=== PATIENT | male | born 1935 | race Caucasian/White ===

== ENCOUNTER 2018-09-02 05:40 | Outpatient (CLI) | payer MEDICARE ==
[~2018-09-02] VITALS: Ht 177.8 cm; Wt 86.6 kg
[~2018-09-02 05:40] MED LIST: ASPI81TA57 PO; LISI10TA2 PO; MULT-974 PO; ROSU10TA12 PO; ZOLP10TA5 PO
[2018-09-02] MEDS ORDERED: PANT40TA3 PO (10:21)
[2018-09-02] MEDS ORDERED: OMG1KC PO (10:21)
[2018-09-02] MEDS ORDERED: AMLO10TA7 PO (10:21)
[2018-09-02] MEDS ORDERED: ASPI-999 PO (10:21)
[2018-09-02] MEDS ORDERED: VITA400C60 PO (10:21)
[2018-09-02] MEDS ORDERED: SIMV40TA4 PO (10:21)
== END 2018-09-02 10:22 | disposition home or self-care (01) ==
LOC: PREOP 05:40
PROVIDERS: ATTEND Specialist
DX: Z01.818 Encounter for other preprocedural examination (principal)

== ENCOUNTER 2018-09-03 08:34 | Day surgery (SDC) | payer MEDICARE ==
[~2018-09-03] VITALS: Ht 177.8 cm; Wt 86.6 kg
[~2018-09-03 08:34] MED LIST changes: +AMLO10TA7 PO; +ASPI-999 PO; +OMG1KC PO; +PANT40TA3 PO; +SIMV40TA4 PO; +VITA400C60 PO
[2018-09-03 09:00] VITALS: BP 125/82
[2018-09-03] MEDS: TETRACAINE 0.5% OPHTH SOLN 4 ML BTL (SINGLE DOSE ONLY) OU PRN ×4 (09:06→09:24)
[2018-09-03] MEDS: PHENYLEPHRINE 10% OPHTH (NEO-SYN) 5 ML BTL OU PRN ×3 (09:06→09:19)
[2018-09-03] MEDS: TROPICAMIDE 1% OPH SOLN (MYDRIACYL) 15 ML BTL OU PRN ×3 (09:06→09:19)
--- OUTSIDE RECORDS SUMMARY | 2018-09-03 09:54 | XMS REPORT ---
Author Author ERIKA PALACIO [facility] Address [address] [place] [address] Care Team Providers Care Band Lining Bander Name Role Phone ERIKA PALACIO Unavailable PROBLEMS Unknown Problems ALLERGIES No Information ENCOUNTERS Encounter Location Date Diagnosis [facility] [id number] [address] October, [facility] [address] [place] [address] October, [place] [id number] [place] [address] Aug, IMMUNIZATIONS No Known Immunizations SOCIAL HISTORY Never Assessed REASON FOR VISIT Eye Exam PLAN OF CARE VITAL SIGNS MEDICATIONS Unknown Medications RESULTS No Results PROCEDURES No Known procedures INSTRUCTIONS MEDICATIONS ADMINISTERED No Known Medications
--- OUTSIDE RECORDS SUMMARY | 2018-09-03 09:54 | XMS REPORT ---
Author Author ERIKA PALACIO [facility] Address [address] [place] [address] Care Team Providers Care Beer Coil Cleaner Name Role Phone ERIKA PALACIO Unavailable PROBLEMS Unknown Problems ALLERGIES No Information ENCOUNTERS Encounter Location Date Diagnosis [facility] [address] [address] October, [facility] [address] [address] October, [place] [id number] [address] Aug, IMMUNIZATIONS No Known Immunizations SOCIAL HISTORY Never Assessed REASON FOR VISIT Requests return call PLAN OF CARE VITAL SIGNS MEDICATIONS Unknown Medications RESULTS No Results PROCEDURES No Known procedures INSTRUCTIONS MEDICATIONS ADMINISTERED No Known Medications
--- OUTSIDE RECORDS SUMMARY | 2018-09-03 09:54 | XMS REPORT | CCD ---
Author Author SHILPI RODRIGUEZ Organization Unknown Address [address] [facility] [address] [place] [address] Care Team Providers Care Autos Disassembler Name Role Phone KOBE FITZPATRICK MD Attphys Allergies Unknown or Not Available. Active Medications Unknown or Not Available. Problems Unknown or Not Available. Procedures Procedure Code Procedure Type Date Cataract removal insertion of lens; (-RT Right side of body) 37936 CPT 03/21/2016 Results Unknown or Not Available. Function Status Unknown or Not Available. History of Immunizations Unknown or Not Available. Plan of Treatment Unknown or Not Available. Social History Smoking Status Code Start Date End Date Former smoker [id number] Vital Signs Unknown or Not Available. Function Status Unknown or Not Available. Goals Unknown or Not Available. ASSESSMENTS Unknown or Not Available. Health Concerns Section Unknown or Not Available.
--- OUTSIDE RECORDS SUMMARY | 2018-09-03 09:55 | XMS REPORT ---
Author Author ERIKA PALACIO [facility] Address [address] [place] [address] Care Team Providers Care Home Health Clinical Liaison Name Role Phone ERIKA PALACIO Unavailable PROBLEMS Unknown Problems ALLERGIES No Information ENCOUNTERS Encounter Location Date Diagnosis [facility] [address] [address] October, [facility] [address] [address] October, [place] [id number] [address] Aug, IMMUNIZATIONS No Known Immunizations SOCIAL HISTORY Never Assessed REASON FOR VISIT Eye Exam PLAN OF CARE VITAL SIGNS MEDICATIONS Unknown Medications RESULTS No Results PROCEDURES No Known procedures INSTRUCTIONS MEDICATIONS ADMINISTERED No Known Medications
--- OUTSIDE RECORDS SUMMARY | 2018-09-03 09:55 | XMS REPORT | Continuity of Care Document ---
Author Author [facility] Organization [facility] Address Unknown Phone Unavailable Allergies Active Description Code Type Severity Reaction Onset Reported/Identified Relationship to Patient Clinical Status Yes MARK INHIBITORS MARK INHIBITORS MODERATE Yes MARK INHIBITORS MODERATE OTHER Yes LISINOPRIL UNKNOWN OTHER Yes No Known Drug Allergies [id number] Drug Allergy Unknown N/A 07/03/2013 Medications Medication Packaging Start Date Stop Date Route Dosage Sig PROMETHAZINE W/ CODEINE LIQ 0 (PHENERGAN) ml 06/05/2016 06/05/2016 PRN ONCE NORMAL SALINE 1000CC IV BAG INJ 0.9 % (NS 1000CC IV BAG) ml 06/05/2016 06/05/2016 ONCE&1302 ACETAMINOPHEN ORAL TABLET 325mg(Tylenol) MG 06/05/2016 06/12/2016 PRN EVERY 6 Hour CEFTRIAXONE PREMIX IV BAG IV 1 GM/50CC (ROCEPHIN PREMIX IV BAG) GM 06/05/2016 06/05/2016 ONCE&1443 IPRATROPIUM/ALBUTEROL INH SOLN INH 0 (DUO-NEB INH SOLN) MLS 06/05/2016 06/12/2016 QID&0600,1100,1600,2100 GUAIFENESIN TAB 600 MG (MUCINEX) MG 06/05/2016 06/12/2016 Q12H&0600,1800 LEVOFLOXACIN PREMIX IV BAG INJ 500 MG/100CC (LEVAQUIN IV PREMIX 100CC BAG) MG 06/05/2016 06/12/2016 Daily&0900 PROMETHAZINE W/ CODEINE LIQ 0 (PHENERGAN) ml 06/05/2016 06/12/2016 PRN Q4H D5 1/2 NS 1000CC IV BAG INJ 0 ml 06/12/2016 CONTINUOUSEVERY 0 Hour SIMVASTATIN TAB 40 MG (ZOCOR) Dose(s) 06/05/2016 06/11/2016 QPM&2000 CARVEDILOL TAB 6.25 MG (COREG) Dose(s) 06/05/2016 06/12/2016 BID&0800,2000 ASA 81MG CHEWABLE TAB 81 MG (BABY ASPIRIN) Dose(s) 06/06/2016 06/12/2016 Daily&0900 PANTOPRAZOLE TAB 40 MG (PROTONIX) Dose(s) 06/06/2016 06/12/2016 Daily&0900 AMLODIPINE TAB 10 MG (NORVASC) Dose(s) 06/06/2016 06/12/2016 Daily&0900 CEFTRIAXONE PREMIX IV BAG IV 1 GM/50CC (ROCEPHIN PREMIX IV BAG) GM 06/06/2016 06/12/2016 Daily&0900 PANTOPAZOLE VIAL INJ 40 MG (PROTONIX IV) MG 06/06/2016 06/15/2016 Daily&0900 Problems Date Dx Coded Attending Type Code Diagnosis Diagnosed By 07/04/2013 ANDREI PENA MD Ot 272.4 HYPERLIPIDEMIA NEC/NOS 07/04/2013 ANDREI PENA MD Ot 288.60 LEUKOCYTOSIS, UNSPECIFIED 07/04/2013 ANDREI PENA MD Ot 401.9 HYPERTENSION NOS 07/04/2013 ANDREI PENA MD Ot 414.00 CORON ATHEROSCLER NOS TYPE VESSEL, NATIV 07/04/2013 ANDREI PENA MD Ot 780.2 SYNCOPE AND COLLAPSE 07/04/2013 ANDREI PENA MD Ot 780.8 GENERALIZED HYPERHIDROSIS 07/04/2013 ANDREI PENA MD Ot V45.81 AORTOCORONARY BYPASS 07/04/2013 ANDREI PENA MD Ot V58.66 LONG-TERM (CURRENT) USE OF ASPIRIN 07/04/2013 ANDREI PENA MD Ot V58.69 OT MED,LT,CURRENT USE 06/05/2016 DEBBIE CRUZ 401 ESSENTIAL HYPERTENSION 06/05/2016 DEBBIE CRUZ 481 PNEUMOCOCCAL PNEUMONIA [STREPTOCOCCUS PNEUMONIAE PNEUMONIA] 06/05/2016 DEBBIE CRUZ I10 ESSENTIAL (PRIMARY) HYPERTENSION 06/05/2016 DEBBIE CRUZ J18.1 LOBAR PNEUMONIA, UNSPECIFIED ORGANISM 06/07/2016 DEBBIE CRUZ 255.41 06/07/2016 DEBBIE CRUZ 401.0 06/07/2016 DEBBIE CRUZ 414.01 06/07/2016 DEBBIE CRUZ A 486 PNEUMONIA, ORGANISM UNSPECIFIED 06/07/2016 DEBBIE CRUZ W 530.81 ESOPHAGEAL REFLUX 06/07/2016 DEBBIE CRUZ W 780.79 06/07/2016 DEBBIE CRUZ 786.05 06/07/2016 DEBBIE CRUZ 786.50 06/07/2016 DEBBIE CRUZ 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 06/07/2016 DEBBIE CRUZ I10 ESSENTIAL (PRIMARY) HYPERTENSION 06/07/2016 DEBBIE CRUZ I25.10 ATHSCL HEART DISEASE OF [place] CORONARY ARTERY W/O ANG PCTRS 06/07/2016 DEBBIE CRUZ J18.9 PNEUMONIA, UNSPECIFIED ORGANISM 06/07/2016 DEBBIE CRUZ K21.9 GASTRO-ESOPHAGEAL REFLUX DISEASE WITHOUT ESOPHAGITIS 06/07/2016 DEBBIE CRUZ R06.02 06/07/2016 DEBBIE CRUZ R07.9 CHEST PAIN, UNSPECIFIED 06/07/2016 DEBBIE CRUZ R53.83 OTHER FATIGUE 06/08/2016 DEBBIE CRUZ 486 06/08/2016 DEBBIE CRUZ J18.9 PNEUMONIA, UNSPECIFIED ORGANISM 08/19/2017 DEBBIE CRUZ 272.4 OTHER AND UNSPECIFIED HYPERLIPIDEMIA 08/19/2017 DEBBIE CRUZ 401.0 MALIGNANT ESSENTIAL HYPERTENSION 08/19/2017 DEBBIE CRUZ E78.5 HYPERLIPIDEMIA, UNSPECIFIED 08/19/2017 DEBBIE CRUZ I10 ESSENTIAL (PRIMARY) HYPERTENSION 08/19/2017 DEBBIE CRUZ V70.0 ROUTINE GENERAL MEDICAL EXAMINATION AT A HEALTH CARE FACILITY 08/19/2017 DEBBIE CRUZ Z00.00 ENCOUNTER FOR GENERAL ADULT MEDICAL EXAMINATION WITHOUT ABNORMAL FINDINGS 08/19/2017 DEBBIE CRUZ 272.4 OTHER AND UNSPECIFIED HYPERLIPIDEMIA 08/19/2017 DEBBIE CRUZ 401.0 MALIGNANT ESSENTIAL HYPERTENSION 08/19/2017 DEBBIE CRUZ E78.5 HYPERLIPIDEMIA, UNSPECIFIED 08/19/2017 DEBBIE CRUZ I10 ESSENTIAL (PRIMARY) HYPERTENSION 08/19/2017 DEBBIE CRUZ V70.0 ROUTINE GENERAL MEDICAL EXAMINATION AT A HEALTH CARE FACILITY 08/19/2017 CRUZ, DEBBIE W Z00.00 ENCOUNTER FOR GENERAL ADULT MEDICAL EXAMINATION WITHOUT ABNORMAL FINDINGS 08/19/2017 TAMMIE CRUZHEL W 272.4 OTHER AND UNSPECIFIED HYPERLIPIDEMIA 08/19/2017 TAMMIE CRUZHEL W 401.0 MALIGNANT ESSENTIAL HYPERTENSION 08/19/2017 TAMMIE CRUZHEL W E78.5 HYPERLIPIDEMIA, UNSPECIFIED 08/19/2017 DEBBIE CRUZ W I10 ESSENTIAL (PRIMARY) HYPERTENSION 08/19/2017 TAMMIE CRUZALLA Payne V70.0 ROUTINE GENERAL MEDICAL EXAMINATION AT A HEALTH CARE FACILITY 08/19/2017 DEBBIE CRUZ W Z00.00 ENCOUNTER FOR GENERAL ADULT MEDICAL EXAMINATION WITHOUT ABNORMAL FINDINGS 10/09/2017 Talisha Charles W 786.2 COUGH 10/09/2017 Talisha Charles W R05 COUGH 10/09/2017 Talisha Charles W 786.2 COUGH 10/09/2017 Talisha Charles W R05 COUGH 10/23/2017 DEBBIE CRUZ A 723.1 CERVICALGIA 10/23/2017 DEBBIE CRUZ A M54.2 CERVICALGIA 10/30/2017 DEBBIE CRUZ W 723.1 CERVICALGIA 10/30/2017 CRUZDEBBIE DE ANDA W M54.2 CERVICALGIA 11/14/2017 CRUZ, DEBBIE W 788.64 URINARY HESITANCY 11/14/2017 ANTHONY, DEBBIE W R39.11 HESITANCY OF MICTURITION 11/14/2017 CRUZ, DEBBIE W 788.64 URINARY HESITANCY 11/14/2017 CRUZ, DEBBIE W R39.11 HESITANCY OF MICTURITION 11/14/2017 DEBBIE CRUZ W 788.64 URINARY HESITANCY 11/14/2017 CRUZ, DEBBIE W R39.11 HESITANCY OF MICTURITION 11/22/2017 CRUZ, DEBBIE W 724.2 LUMBAGO 11/22/2017 CRUZDEBBIE DE ANDA W M54.5 LOW BACK PAIN 11/22/2017 CRUZ, DEBBIE W 723.1 CERVICALGIA 11/22/2017 CRUZ, DEBBIE W 724.2 LUMBAGO 11/22/2017 CRUZ, DEBBIE W M54.2 CERVICALGIA 11/22/2017 CRUZDEBBIE DE ANDA W M54.5 LOW BACK PAIN 12/12/2017 CRUZDEBBIE DE ANDA W 723.1 CERVICALGIA 12/12/2017 DEBBIE CRUZ W 724.2 LUMBAGO 12/12/2017 DEBBIE CRUZ W M54.2 CERVICALGIA 12/12/2017 DEBBIE CRUZ W M54.5 LOW BACK PAIN 02/20/2018 DEBBIE CRUZ A 401.0 MALIGNANT ESSENTIAL HYPERTENSION 02/20/2018 ANTHONY DEBBIE A I10 ESSENTIAL (PRIMARY) HYPERTENSION 02/20/2018 TAMMIE CRUZHEL A 401.0 MALIGNANT ESSENTIAL HYPERTENSION 02/20/2018 TAMMIE CRUZHEL W 414.01 CORONARY 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 ARTERY 02/20/2018 ANTHONY DEBBIE A I10 ESSENTIAL (PRIMARY) HYPERTENSION 02/20/2018 TAMMIE CRUZHEL W I25.10 ATHEROSCLEROTIC HEART DISEASE OF [place] CORONARY ARTERY WITHOUT ANGINA PECTORIS 02/20/2018 DEBBIE CRUZ A 401.0 MALIGNANT ESSENTIAL HYPERTENSION 02/20/2018 TAMMIE CRUZHEL W 414.01 CORONARY 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 ARTERY 02/20/2018 TAMMEI CRUZHEL A I10 ESSENTIAL (PRIMARY) HYPERTENSION 02/20/2018 DEBBIE CRUZ W I25.10 ATHEROSCLEROTIC HEART DISEASE OF [place] CORONARY ARTERY WITHOUT ANGINA PECTORIS 02/20/2018 DEBBIE CRUZ A 401.0 MALIGNANT ESSENTIAL HYPERTENSION 02/20/2018 TAMMIE CRUZHEL W 414.01 CORONARY 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 ARTERY 02/20/2018 DEBBIE CRUZ A I10 ESSENTIAL (PRIMARY) HYPERTENSION 02/20/2018 ANTHONY DEBBIE W I25.10 ATHEROSCLEROTIC HEART DISEASE OF [place] CORONARY ARTERY WITHOUT ANGINA PECTORIS 08/21/2018 DEBBIE CRUZ W 272.4 OTHER AND UNSPECIFIED HYPERLIPIDEMIA 08/21/2018 DEBBIE CRUZ W 401.0 MALIGNANT ESSENTIAL HYPERTENSION 08/21/2018 TAMMIE CRUZHEL W 414.01 CORONARY 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 ARTERY 08/21/2018 DEBBIE CRUZ W E78.5 HYPERLIPIDEMIA, UNSPECIFIED 08/21/2018 ANTHONY DEBBIE W I10 ESSENTIAL (PRIMARY) HYPERTENSION 08/21/2018 ANTHONY DEBBIE W I25.10 ATHEROSCLEROTIC HEART DISEASE OF [place] CORONARY ARTERY WITHOUT ANGINA PECTORIS 08/21/2018 DEBBIE CRUZ W 272.4 OTHER AND UNSPECIFIED HYPERLIPIDEMIA 08/21/2018 TAMMIE CRUZHEL W 401.0 MALIGNANT ESSENTIAL HYPERTENSION 08/21/2018 TAMMIE CRUZHEL W 414.01 CORONARY 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 ARTERY 08/21/2018 CRUZTAMMIEDEBBIE W E78.5 HYPERLIPIDEMIA, UNSPECIFIED 08/21/2018 CRUZTAMMIEDEBBIE W I10 ESSENTIAL (PRIMARY) HYPERTENSION 08/21/2018 TAMMIE CRUZALLA Payne I25.10 ATHEROSCLEROTIC HEART DISEASE OF [place] CORONARY ARTERY WITHOUT ANGINA PECTORIS 09/02/2018 DEBBIE CRUZ MD Ot 574.90 CALC GB/BILE DUCT W/O CHOLECYST W/O OBST 09/02/2018 DEBBIE CRUZ MD Ot 787.01 NAUSEA WITH VOMITING 09/02/2018 DEBBIE CRUZ MD Ot 787.23 DYSPHAGIA, PHARYNGEAL PHASE 09/03/2018 AMARI BUNCH, KOBE Ledesma Ot Z01.818 ENCOUNTER FOR OTHER PREPROCEDURAL EXAMIN Procedures There is no data. Results Test Result Range CBC with Auto Diff - 06/05/16 12:40 Baso% 0.20 % 0.00-2.50 Eos 0.2 K/uL 0.0-0.7 Eos% 1.7 % 0.0-7.0 Hct 42.0 % 42.0-52.0 Hgb 14.1 g/dL 14.0-17.0 Lym 5.24 K/uL 0.60-3.40 Lym% 50.7 % 10.0-50.0 MCH 29.8 pg 27.0-31.2 MCHC 33.6 g/dL 32.0-36.0 MCV 88.8 fL 80.0-97.0 [place]% 10.0 % 0.0-12.0 MPV 11.3 fL 7.4-10.0 Thony% 37.4 % 37.0-80.0 Plt 178 K/uL 150-400 RBC 4.73 M/uL 4.20-5.40 RDW 14.4 % 11.6-14.8 WBC 10.34 K/uL 5.00-10.00 Thony 3.87 K/uL 2.00-6.90 [place] 1.0 K/uL 0.0-0.9 Baso 0.0 K/uL 0.0-0.2 Urinalysis - 06/05/16 17:57 Icotest N/A Negative Urine Volume Urine Volume Sufficient (10mL) Urine Yeast No Yeast present Urine-Appearance Clear Clear Urine-Bacteria Trace Urine-Bilirubin Negative Negative Urine-Blood Negative Negative Urine-Color Yellow Colorless-Lt. Yellow Urine-Epithelial Cells 0-1/HPF Urine-Glucose Negative Negative Urine-Ketones Trace Negative Urine-Leukocytes Negative Negative Urine-Mucus 1+ Urine-Nitrite Negative Negative Urine-Other Urine Saved if Culture Needed (48hrs from time of collection) Urine-pH 6.5 5-8.5 Urine-Protein Trace Negative Urine-RBC Rare/HPF Urine-Specific [place] 1.020 1.000-1.030 Urine-WBC 0-2/HPF Urobilinogen 1.0 0.2-1.0 Lipid Panel - 08/14/16 10:40 C/HDL 5.3 3.7-6.7 Cholesterol 170 mg/dL 100-240 HDL 32 mg/dL 30-85 LDL-Calculated 77 mg/dL 0-100 Trig 306 mg/dL 35-160 VLDL 61 mg/dL 0-42 BMP - 02/18/17 10:36 Anion Gap 12 6-14 BUN 12 mg/dL 5-25 Calcium 9.0 mg/dL 8.3-10.4 Chloride 107 mmol/L 95-114 CO2 30 mEq/L 22-33 Creat 1.23 mg/dL 0.50-1.50 eGFR 56 mL/min/1.73m2 >59 Glucose 101 mg/dL 70-110 Osmo 299 280-295 Potassium 3.9 mmol/L 3.5-5.3 Sodium 145 mmol/L 134-148 Lipid Panel - 08/19/17 09:42 C/HDL 4.9 3.7-6.7 Cholesterol 183 mg/dL 100-240 HDL 37 mg/dL 30-85 LDL-Calculated 96 mg/dL 0-100 Trig 249 mg/dL 35-160 VLDL 50 mg/dL 0-42 Mycoplasma - 10/09/17 09:05 Mycoplasma Negative Negative PSA Yearly Screen - 11/14/17 09:25 PSA TOTAL 6.1 ng/mL 0.0-4.0 Comprehensive Metabolic Panel - 02/20/18 10:27 Albumin 4.1 g/dL 3.6-5.1 ALP 85 U/L 35-130 ALT 18 U/L 6-45 Anion Gap 13 6-14 AST 17 U/L 2-40 BUN 18 mg/dL 5-25 Calcium 8.8 mg/dL 8.3-10.4 Chloride 111 mmol/L 95-114 CO2 22 mEq/L 22-33 Creat 1.14 mg/dL 0.50-1.50 eGFR 61 mL/min/1.73m2 >59 Globulin 2.0 g/dL 2.3-3.5 Glucose 111 mg/dL 70-110 Osmo 296 280-295 Potassium 3.5 mmol/L 3.5-5.3 Sodium 142 mmol/L 134-148 TBil 0.6 mg/dL 0.2-1.2 TP 6.1 g/dL 6.0-8.3 BMP - 08/21/18 09:20 Anion Gap 16 6-14 BUN 19 mg/dL 5-25 Calcium 9.3 mg/dL 8.3-10.4 Chloride 107 mmol/L 95-114 CO2 21 mEq/L 22-33 Creat 1.27 mg/dL 0.50-1.50 eGFR 54 mL/min/1.73m2 >59 Glucose 101 mg/dL 70-110 Osmo 291 280-295 Potassium 3.9 mmol/L 3.5-5.3 Sodium 140 mmol/L 134-148 Lipid Panel - 08/21/18 09:20 C/HDL 4.5 3.7-6.7 Cholesterol 172 mg/dL 100-240 HDL 38 mg/dL 30-85 LDL-Calculated 100 mg/dL 0-100 Trig 172 mg/dL 35-160 VLDL 34 mg/dL 0-42 Encounters ACCT No. Visit Date/Time Discharge Status Pt. Type Provider Facility Loc./Unit Complaint [id number] 09/02/2018 05:40:00 09/02/2018 10:22:00 DIS Outpatient KOBE FITZPATRICK MD [facility] PREOP RIGHT YAG [id number] 10/20/2013 09:26:00 10/20/2013 23:59:59 CLS Outpatient DEBBIE CRUZ MD [facility] CARD NAUSEA, VOMITTING, GALLSTONES [id number] 07/03/2013 14:13:00 07/04/2013 11:45:00 DIS Inpatient ANDREI PENA MD [facility] CSD SYNCOPE [id number] 09/03/2018 08:34:00 ACT Outpatient KOBE FITZPATRICK MD [facility] SDC RIGHT YAG [id number] 08/21/2018 16:50:00 08/21/2018 23:59:00 DIS Outpatient DEBBIE CRUZ [id number] 02/20/2018 10:26:00 02/20/2018 23:59:00 DIS Outpatient DEBBIE CRUZ [id number] 01/23/2018 14:10:00 01/23/2018 23:59:00 DIS Outpatient DEBBIE CRUZ [id number] 11/19/2017 08:47:00 12/12/2017 09:40:00 DIS Outpatient DEBBIE CRUZ [id number] 11/14/2017 11:11:00 11/14/2017 23:59:00 DIS Outpatient DEBBIE CRUZ [id number] 11/14/2017 10:06:00 11/14/2017 23:59:00 DIS Outpatient DEBBIE CRUZ [id number] 10/21/2017 15:29:00 10/23/2017 11:30:00 DIS Outpatient DEBBIE CRUZ [id number] 10/09/2017 11:19:00 10/09/2017 23:59:00 DIS Outpatient Talisha Charles [id number] 08/19/2017 12:42:00 08/19/2017 23:59:00 DIS Outpatient DEBBIE CRUZ [id number] 02/18/2017 10:34:00 02/18/2017 23:59:00 DIS Outpatient DEBBIE CRUZ [id number] 08/14/2016 11:21:00 08/14/2016 23:59:00 DIS Outpatient DEBBIE CRUZ [id number] 06/12/2016 11:00:00 06/12/2016 23:59:00 DIS Outpatient DEBBIE CRUZ [id number] 06/05/2016 12:24:00 06/07/2016 09:55:00 DIS Outpatient DEBBIE CRUZ [id number] 06/08/2016 12:00:50 Document Registration [id number] 06/05/2016 13:03:33 Document Registration [id number] 08/21/2018 16:50:00 Document Registration [id number] 10/30/2017 15:00:00 10/30/2017 23:59:59 [facility] Outpatient [facility]
[2018-09-03 10:00] VITALS: BP 125/82
--- NOTE | 2018-09-03 10:03 | Ophthalmologist Pre-Op Note ---
Pre-Operative Progress Note H&P Reviewed The H&P was reviewed, patient examined and no changes noted. Date H&P Reviewed: Sep 03, 2018 Time H&P Reviewed: 09:42 Pre-Op Dx Secondary Cataract, Right Eye KOBE FITZPATRICK MD Sep 03, 2018 10:03
--- NOTE | 2018-09-03 10:06 | Ophthalmology Operative Report ---
YAG Capsulotomy PREOPERATIVE DIAGNOSIS: Secondary Cataract Right Eye POSTOPERATIVE DIAGNOSIS: Secondary Cataract Right Eye PROCEDURE: YAG Capsulotomy, right eye SURGEON: Kuldeep Fitzpatrick ANESTHESIA: Topical anesthesia COMPLICATIONS: None ESTIMATED BLOOD LOSS: Minimal DESCRIPTION OF PROCEDURE: After proper informed consent was obtained, the patient's, a 83 male, right eye received one drop of Tropicamide and one drop of Tetracaine. The patient was then placed at the YAG laser and using a power of [5.1] millijoules and [ 29] bursts were used to fashion a central capsulotomy. The patient tolerated the procedure well without complications and the patient's pressure was [ 13] shortly after the laser. KULDEEP FITZPATRICK MD Sep 03, 2018 10:06
== END 2018-09-03 10:00 | disposition home or self-care (01) ==
LOC: SDC 08:34
PROVIDERS: ATTEND Specialist
DX: H26.40 Unspecified secondary cataract (principal); I10 Essential (primary) hypertension; E78.00 Pure hypercholesterolemia, unspecified

== ENCOUNTER 2018-09-10 05:42 | Outpatient (CLI) | payer MEDICARE ==
[~2018-09-10] VITALS: Ht 177.8 cm; Wt 86.6 kg
== END 2018-09-10 10:56 | disposition home or self-care (01) ==
LOC: PREOP 05:42
PROVIDERS: ATTEND Specialist
DX: Z01.818 Encounter for other preprocedural examination (principal)

== ENCOUNTER 2018-09-12 05:45 | Day surgery (SDC) | payer MEDICARE ==
[~2018-09-12] VITALS: Ht 177.8 cm; Wt 86.6 kg
--- OUTSIDE RECORDS SUMMARY | 2018-09-12 05:47 | XMS REPORT | Continuity of Care Document ---
Author Author [facility] Organization [facility] Address Unknown Phone Unavailable Allergies Active Description Code Type Severity Reaction Onset Reported/Identified Relationship to Patient Clinical Status Yes MARK INHIBITORS MARK INHIBITORS MODERATE Yes MARK INHIBITORS MODERATE OTHER Yes LISINOPRIL UNKNOWN OTHER Yes No Known Drug Allergies [id number] Drug Allergy Unknown N/A 07/03/2013 Medications Medication [...] DEBBIE CRUZ I25.10 ATHSCL HEART DISEASE OF [place] CORONARY ARTERY W/O ANG PCTRS 06/07/2016 DEBBIE [...] Talisha Charles W R05 COUGH 10/09/2017 Talisha Cahrles W 786.2 COUGH 10/09/2017 Talisha Charles W [...] TAMMIE CRUZHEL W 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 02/20/2018 ANTHONY DEBBIE A I10 ESSENTIAL (PRIMARY) HYPERTENSION 02/20/2018 TAMMIE CRUZHEL W I25.10 ATHEROSCLEROTIC HEART DISEASE OF [place] CORONARY ARTERY WITHOUT ANGINA PECTORIS 02/20/2018 DEBBIE CRUZ A 401.0 MALIGNANT ESSENTIAL HYPERTENSION 02/20/2018 TAMMIE CRUZHEL W 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 02/20/2018 TAMMIE CRUZHEL A I10 ESSENTIAL (PRIMARY) HYPERTENSION 02/20/2018 DEBBIE CRUZ W I25.10 ATHEROSCLEROTIC HEART DISEASE OF [place] CORONARY ARTERY WITHOUT ANGINA PECTORIS 02/20/2018 DEBBIE CRUZ A 401.0 MALIGNANT ESSENTIAL HYPERTENSION 02/20/2018 TAMMIE CRUZHEL W 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 02/20/2018 DEBBIE CRUZ A I10 ESSENTIAL (PRIMARY) HYPERTENSION 02/20/2018 ANTHONY DEBBIE W I25.10 ATHEROSCLEROTIC HEART DISEASE OF [place] CORONARY ARTERY WITHOUT ANGINA PECTORIS 08/21/2018 DEBBIE CRUZ W 272.4 OTHER AND UNSPECIFIED HYPERLIPIDEMIA 08/21/2018 DEBBIE CRUZ W 401.0 MALIGNANT ESSENTIAL HYPERTENSION 08/21/2018 TAMMIE CRUZHEL W 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 08/21/2018 DEBBIE CRUZ W E78.5 HYPERLIPIDEMIA, UNSPECIFIED 08/21/2018 ANTHONY DEBBIE W I10 ESSENTIAL (PRIMARY) HYPERTENSION 08/21/2018 ANTHONY DEBBIE W I25.10 ATHEROSCLEROTIC HEART DISEASE OF [place] CORONARY ARTERY WITHOUT ANGINA PECTORIS 08/21/2018 DEBBIE CRUZ W 272.4 OTHER AND UNSPECIFIED HYPERLIPIDEMIA 08/21/2018 TAMMIE CRUZHEL W 401.0 MALIGNANT ESSENTIAL HYPERTENSION 08/21/2018 CRUZ, DEBBIE W 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 08/21/2018 DEBBIE CRUZ E78.5 HYPERLIPIDEMIA, UNSPECIFIED 08/21/2018 DEBBIE CRUZ I10 ESSENTIAL (PRIMARY) HYPERTENSION 08/21/2018 DEBBIE CRUZ I25.10 ATHEROSCLEROTIC HEART DISEASE OF [place] CORONARY ARTERY WITHOUT ANGINA PECTORIS 09/02/2018 DEBBIE CRUZ MD Ot 574.90 CALC GB/BILE DUCT W/O CHOLECYST W/O OBST 09/02/2018 DEBBIE CRUZ MD Ot 787.01 NAUSEA WITH VOMITING 09/02/2018 DEBBIE CRUZ MD Ot 787.23 DYSPHAGIA, PHARYNGEAL PHASE 09/02/2018 KOBE FITZPATRICK MD Ot Z01.818 ENCOUNTER FOR OTHER PREPROCEDURAL EXAMIN 09/03/2018 KOBE FITZPATRICK MD Ot Z01.818 ENCOUNTER FOR OTHER PREPROCEDURAL EXAMIN 09/03/2018 KOBE FITZPATRICK MD Ot E78.00 PURE HYPERCHOLESTEROLEMIA, UNSPECIFIED 09/03/2018 KOBE FITZPATRICK MD Ot H26.40 UNSPECIFIED SECONDARY CATARACT 09/03/2018 KOBE FITZPATRICK MD Ot I10 ESSENTIAL (PRIMARY) HYPERTENSION 09/05/2018 KOBE FITZPATRICK MD Ot E78.00 PURE HYPERCHOLESTEROLEMIA, UNSPECIFIED 09/05/2018 KOBE FITZPATRICK MD Ot H26.40 UNSPECIFIED SECONDARY CATARACT 09/05/2018 KOBE FITZPATRICK MD Ot I10 ESSENTIAL (PRIMARY) HYPERTENSION 09/10/2018 DEBBIE CRUZ MD Ot 574.90 CALC GB/BILE DUCT W/O CHOLECYST W/O OBST 09/10/2018 DEBBIE CRUZ MD Ot 787.01 NAUSEA WITH VOMITING 09/10/2018 DEBBIE CRUZ MD Ot 787.23 DYSPHAGIA, PHARYNGEAL PHASE Procedures There is no data. Results Test Result Range CBC with Auto Diff - 06/05/16 12:40 Baso% 0.20 % 0.00-2.50 Eos 0.2 K/uL 0.0-0.7 Eos% 1.7 % 0.0-7.0 Hct 42.0 % 42.0-52.0 Hgb 14.1 g/dL 14.0-17.0 Lym 5.24 K/uL 0.60-3.40 Lym% 50.7 % 10.0-50.0 MCH 29.8 pg 27.0-31.2 MCHC 33.6 g/dL 32.0-36.0 MCV 88.8 fL 80.0-97.0 [place]% 10.0 % 0.0-12.0 MPV 11.3 fL 7.4-10.0 Thony% 37.4 % 37.0-80.0 Plt 178 K/uL 150-400 RBC 4.73 M/uL 4.20-5.40 RDW 14.4 % 11.6-14.8 WBC 10.34 K/uL 5.00-10.00 Thony 3.87 K/uL 2.00-6.90 [place] 1.0 K/uL 0.0-0.9 Baso 0.0 K/uL 0.0-0.2 [...] 5-8.5 Urine-Protein Trace Negative Urine-RBC Rare/HPF Urine-Specific [place] 1.020 1.000-1.030 Urine-WBC 0-2/HPF Urobilinogen 1.0 0.2-1.0 [...] Status Pt. Type Provider Facility Loc./Unit Complaint [id number] 09/10/2018 05:42:00 09/10/2018 10:56:00 DIS Outpatient KOBE FITZPATRICK MD [facility] PREOP CATARACT LEFT [id number] 09/03/2018 08:34:00 09/03/2018 23:59:59 CLS Out[facility] [id number] 09/02/2018 05:40:00 09/02/2018 10:22:00 DIS Outpatient KOBE FITZPATRICK MD [facility] PREOP RIGHT YAG [id number] 10/20/2013 09:26:00 10/20/2013 23:59:59 CLS Outpatient DEBBIE CRUZ MD [facility] CARD NAUSEA, VOMITTING, GALLSTONES [id number] 07/03/2013 14:13:00 07/04/2013 11:45:00 DIS Inpatient JEAN BUNCH, ANDREI Murray [facility] CSD SYNCOPE [id number] 09/12/2018 05:45:00 ACT Outpatient KOBE FITZPATRICK MD [facility] CATARACT LEFT [id number] 08/21/2018 16:50:00 08/21/2018 23:59:00 DIS Outpatient DEBBIE CRUZ [id number] 02/20/2018 10:26:00 02/20/2018 23:59:00 DIS Outpatient DEBBIE CRUZ [id number] 01/23/2018 14:10:00 01/23/2018 23:59:00 DIS Outpatient DEBBIE CRUZ [id number] 11/19/2017 08:47:00 12/12/2017 09:40:00 DIS Outpatient DEBBIE CRUZ [id number] 11/14/2017 11:11:00 11/14/2017 23:59:00 DIS Outpatient DEBBIE CRUZ [id number] 11/14/2017 10:06:00 11/14/2017 23:59:00 DIS Outpatient DEBBIE CRUZ [id number] 10/21/2017 15:29:00 10/23/2017 11:30:00 DIS Outpatient ANTHONY DEBBIE [id number] 10/09/2017 11:19:00 10/09/2017 23:59:00 DIS Outpatient Talisha Charles [id number] 08/19/2017 12:42:00 08/19/2017 23:59:00 DIS Outpatient CRUZDEBBIE [id number] 02/18/2017 10:34:00 02/18/2017 23:59:00 DIS Outpatient CRUZDEBBIE [id number] 08/14/2016 11:21:00 08/14/2016 23:59:00 DIS Outpatient CRUZDEBBIE [id number] 06/12/2016 11:00:00 06/12/2016 23:59:00 DIS Outpatient ANTHONY DEBBIE [id number] 06/05/2016 12:24:00 06/07/2016 09:55:00 DIS Outpatient ANTHONYDEBBIE [id number] 06/08/2016 12:00:50 Document Registration [id number] 06/05/2016 13:03:33 Document Registration [id number] 08/21/2018 16:50:00 Document Registration [id number] 10/30/2017 15:00:00 10/30/2017 23:59:59 [facility] Outpatient [facility]
[2018-09-12] MEDS ORDERED: LIDOCAINE PF 1% 2 ML AMP IR PRN (06:15)
[2018-09-12] MEDS ORDERED: MOXIFLOXACIN OPHTH SOLN 5 MG/ML 0.3 ML SYRINGE OP ONE (06:15)
[2018-09-12] MEDS ORDERED: TIMOLOL MALEATE 0.5% 5 ML (TIMOPTIC) BTL OU PRN (06:15)
[2018-09-12] MEDS ORDERED: POVIDONE (BETADINE) OPHTH SOLN 5% 30 ML OP ONE (06:15)
[2018-09-12] MEDS: TETRACAINE 0.5% OPHTH SOLN 4 ML BTL (SINGLE DOSE ONLY) OU PRN ×4 (06:16→06:41)
[2018-09-12 06:22] VITALS: BP 131/74
[2018-09-12] MEDS: CYCLOPENTOLATE 1% (CYCLOGYL) 2 ML DROPS OP SCH ×3 (06:29→06:41)
[2018-09-12] MEDS: PHENYLEPHRINE 10% OPHTH (NEO-SYN) 5 ML BTL OU SCH ×3 (06:29→06:41)
--- NOTE | 2018-09-12 07:28 | Ophthalmologist Pre-Op Note ---
Pre-Operative Progress Note H&P Reviewed The H&P was reviewed, patient examined and no changes noted. Date H&P Reviewed: Sep 12, 2018 Time H&P Reviewed: 07:28 Pre-Op Dx Cataract, Left Eye KOBE FITZPATRICK MD Sep 12, 2018 07:28
[2018-09-12] MEDS ORDERED: MIDAZOLAM 2 MG/2 ML (VERSED) VIAL ONE (07:30)
--- NOTE | 2018-09-12 07:52 | Ophthalmology Operative Report ---
Cataract removal/placement IOL PREOPERATIVE DIAGNOSIS: Cataract Left Eye POSTOPERATIVE DIAGNOSIS: Cataract Left Eye PROCEDURE: Cataract removal and placement of posterior chamber implant, left eye SURGEON: Kuldeep Fitzpatrick ANESTHESIA: Topical with sedation COMPLICATIONS: None ESTIMATED BLOOD LOSS: Minimal DESCRIPTION OF PROCEDURE: After proper informed consent was obtained, the patient, a 83 male, was taken to the Operating Room and the left eye was anesthetized with tetracaine. The left eye was then prepped and draped in the usual manner. A wire lid speculum was placed. A paracentesis was made at the left hand position. Preservative free lidocaine was injected into the anterior chamber followed by viscoelastic. A clear corneal incision was made in the temporal position. A capsulorrhexis was preformed and the central nuclear and cortical material were removed. The posterior capsule was polished and an German 19.0 [id number] was placed into the capsular bag. The residual viscoelastic was aspirated and balanced saline solution was injected into the anterior chamber. Moxifloxacin was injected into the anterior chamber. The wound was checked and found to be water tight. The patient tolerated the procedure well without complications. KULDEEP FITZPATRICK MD Sep 12, 2018 07:52
[2018-09-12 08:00] VITALS: BP 155/83
[2018-09-12] MEDS ORDERED: acetaZOLAMIDE ER 500 MG CAP (DIAMOX SEQUELS) PO ONE (08:00)
== END 2018-09-12 08:00 | disposition home or self-care (01) ==
LOC: SDC 05:45
PROVIDERS: ATTEND Specialist
DX: H25.12 Age-related nuclear cataract, left eye (principal); I10 Essential (primary) hypertension; E78.00 Pure hypercholesterolemia, unspecified; Z95.1 Presence of aortocoronary bypass graft; Z79.82 Long term (current) use of aspirin; Z79.899 Other long term (current) drug therapy

== ENCOUNTER → 2019-12-10 | Outpatient (CLI) | payer MEDICARE, OTHER ==
[~2019-12-10] MED LIST changes: +SIMV40TA25 PO; -SIMV40TA4 PO
== END ==
LOC: CANPRECLI → LABNPT 13:41
PROVIDERS: ATTEND Family Medicine
DX: Z01.812 Encounter for preprocedural laboratory examination (principal)

== ENCOUNTER → 2019-12-10 | Outpatient (CLI) | payer OTHER, MEDICARE ==
[2019-12-10 14:07] LABS: ABSOLUTE RETIC # 73 10e9/L (24-90); RETICULOCYTE % 1.48 % (0.50-2.40)
[2019-12-10 14:25] LABS: ATYPICAL LYMPHOCYTES 4 %; BAND NEUTROPHILS 1 %; BASOPHILS % (MANUAL) 0 %; EOSINOPHILS % (MANUAL) 1 %; LYMPHOCYTES % (MANUAL) 61 %; MONOCYTES % (MANUAL) 7 %; NEUTROPHILS % (MANUAL) 26 %
[2019-12-10 14:26] LABS: ELLIPT/OVALOCYTES SLIGHT
== END ==
LOC: LABNPT 14:00
PROVIDERS: ATTEND Family Medicine
DX: Z01.812 Encounter for preprocedural laboratory examination (principal)
CPT/HCPCS: 85007; 85045

== ENCOUNTER 2020-04-07 12:36 | Outpatient (RCR) | payer OTHER ==
[2020-03-17 10:23] LABS: ABSOLUTE RETIC # 77 10e9/uL (24-90); BASOPHILS # (AUTO) 0.1 10^3/uL (0.0-0.1); BASOPHILS % (AUTO) 0 % (0-10); EOSINOPHILS # (AUTO) 0.3 10^3/uL (0.0-0.3); EOSINOPHILS % (AUTO) 2 % (0-10); HEMATOCRIT 47 % (40-54); HEMOGLOBIN 15.4 g/dL (13.3-17.7); LYMPHOCYTES # (AUTO) 10.7 10^3/uL (1.0-4.0); LYMPHOCYTES % (AUTO) 69 % (12-44); MEAN CORPUSCULAR HEMOGLOBIN 30 pg (25-34); MEAN CORPUSCULAR HGB CONC 33 g/dL (32-36); MEAN CORPUSCULAR VOLUME 92 fL (80-99); MEAN PLATELET VOLUME 11.8 fL (9.0-12.2); MONOCYTES # (AUTO) 0.7 10^3/uL (0.0-1.0); MONOCYTES % (AUTO) 5 % (0-12); NEUTROPHILS # (AUTO) 3.8 10^3/uL (1.8-7.8); NEUTROPHILS % (AUTO) 24 % (42-75); PLATELET COUNT 157 10^3/uL (130-400); RETICULOCYTE % 1.52 % (0.50-2.40); WHITE BLOOD COUNT 15.6 10^3/uL (4.3-11.0)
[2020-03-17 10:41] LABS: ALBUMIN 3.9 GM/DL (3.2-4.5); BILIRUBIN,TOTAL 0.6 MG/DL (0.1-1.0); CALCIUM 8.9 MG/DL (8.5-10.1); CREATININE SERUM 1.18 MG/DL (0.60-1.30); POTASSIUM 4.2 MMOL/L (3.6-5.0); TOTAL PROTEIN 5.9 GM/DL (6.4-8.2)
[~2020-04-07 12:36] MED LIST changes: +AMLO-251 PO; -AMLO10TA7 PO; -PANT40TA3 PO; +PANT40TA52 PO
== END 2020-06-15 | disposition home or self-care (01) ==
LOC: ONC 12:36
PROVIDERS: ATTEND Internal Medicine Hematology & Oncology
DX: C91.10 Chronic lymphocytic leukemia of B-cell type not having achieved remission (principal); I10 Essential (primary) hypertension; I25.10 Atherosclerotic heart disease of native coronary artery without angina pectoris; E78.00 Pure hypercholesterolemia, unspecified; E88.09 Other disorders of plasma-protein metabolism, not elsewhere classified; Z87.430 Personal history of prostatic dysplasia; Z90.89 Acquired absence of other organs; Z90.49 Acquired absence of other specified parts of digestive tract; Z95.1 Presence of aortocoronary bypass graft
CPT/HCPCS: 80053; 82784 ×3; 83615; 83883; 84165; 85025; 85045; 88184; 88185; G0463; 84155; 88377; 99213; 99214

== ENCOUNTER → 2020-04-14 | Outpatient (CLI) | payer MEDICARE, OTHER ==
[~2020-04-14] MED LIST changes: +BARIUM SUSPENSION 2.1% (VANILLA SILQ) 450 ML PO ONE; +CATHETER FLUSH 10 ML SYR IV PRN; +HOLD METFORMIN - RECEIVED CONTRAST 20 ML VIAL IV SCH; +IOHEXOL 350 MG/ML 100 ML (OMNIPAQUE 350) VIAL IV ONE; +NS 100 ML (IVPB) BAG IV ONE
--- NOTE | 2020-04-14 14:30 | Diagnostic Imaging Report ---
PROCEDURE: CT chest with contrast, CT abdomen and pelvis with and without contrast. TECHNIQUE: Pre and post intravenous contrast axial imaging of the abdomen and pelvis and post contrast axial imaging of the chest were performed. Auto Exposure Controls were utilized during the CT exam to meet ALARA standards for radiation dose reduction. INDICATION: Chronic lymphocytic leukemia. COMPARISON: No prior studies are available for comparison. FINDINGS: CT chest: No axillary lymphadenopathy is identified. No mediastinal or hilar lymphadenopathy is identified. No pericardial or pleural fluid is identified. There are coronary arterial calcifications present. Changes of median sternotomy are noted. No pulmonary infiltrates, nodules or masses are detected. Bony structures are unremarkable. IMPRESSION: Unremarkable CT of the chest. No thoracic lymphadenopathy is detected. CT abdomen and pelvis: No discrete liver mass is detected. Gallbladder is surgically absent. No biliary ductal dilatation is seen. The pancreas and spleen are unremarkable. No adrenal mass is detected. Right kidney contains tiny cortical low densities, too small to accurately characterize. No definite calculi or hydronephrosis is detected. Aorta is non-aneurysmal. No central, retroperitoneal or mesenteric lymphadenopathy is identified. The small and large bowel loops are normal caliber. There is no obstruction. There is diverticulosis of the sigmoid and descending colon but no evidence of acute diverticulitis. Appendix is unremarkable. There is no free fluid or fluid collection. The bladder is unremarkable. There is enlargement of the prostate gland. No pelvic lymphadenopathy is seen. Bony structures are unremarkable. IMPRESSION: 1. Uncomplicated diverticulosis. 2. Prostatomegaly. 3. No evidence of abdominal or pelvic lymphadenopathy. Dictated by: Dictated on workstation # [id number]
== END ==
LOC: RAD 13:15
PROVIDERS: ATTEND Internal Medicine Hematology & Oncology
DX: C91.10 Chronic lymphocytic leukemia of B-cell type not having achieved remission (principal); N40.0 Benign prostatic hyperplasia without lower urinary tract symptoms; K57.90 Diverticulosis of intestine, part unspecified, without perforation or abscess without bleeding
CPT/HCPCS: 71260; 74178

== ENCOUNTER → 2020-07-11 | Outpatient (CLI) | payer MEDICARE ==
[~2020-07-11] MED LIST changes: -BARIUM SUSPENSION 2.1% (VANILLA SILQ) 450 ML PO ONE; -CATHETER FLUSH 10 ML SYR IV PRN; -HOLD METFORMIN - RECEIVED CONTRAST 20 ML VIAL IV SCH; -IOHEXOL 350 MG/ML 100 ML (OMNIPAQUE 350) VIAL IV ONE; -NS 100 ML (IVPB) BAG IV ONE
[2020-07-11 13:04] LABS: BASOPHILS % (AUTO) 0 % (0-10); EOSINOPHILS # (AUTO) 0.2 10^3/uL (0.0-0.3); EOSINOPHILS % (AUTO) 2 % (0-10); HEMATOCRIT 46 % (40-54); HEMOGLOBIN 15.1 g/dL (13.3-17.7); LYMPHOCYTES # (AUTO) 9.1 10^3/uL (1.0-4.0); LYMPHOCYTES % (AUTO) 66 % (12-44); MEAN CORPUSCULAR HEMOGLOBIN 30 pg (25-34); MEAN CORPUSCULAR HGB CONC 33 g/dL (32-36); MEAN CORPUSCULAR VOLUME 92 fL (80-99); MEAN PLATELET VOLUME 11.5 fL (9.0-12.2); MONOCYTES # (AUTO) 0.6 10^3/uL (0.0-1.0); MONOCYTES % (AUTO) 4 % (0-12); NEUTROPHILS # (AUTO) 3.9 10^3/uL (1.8-7.8); NEUTROPHILS % (AUTO) 28 % (42-75); PLATELET COUNT 180 10^3/uL (130-400); WHITE BLOOD COUNT 13.8 10^3/uL (4.3-11.0)
[2020-07-11 13:37] LABS: ALBUMIN 3.8 GM/DL (3.2-4.5); BILIRUBIN,TOTAL 0.9 MG/DL (0.1-1.0); CALCIUM 8.9 MG/DL (8.5-10.1); CREATININE SERUM 1.32 MG/DL (0.60-1.30); POTASSIUM 4.1 MMOL/L (3.6-5.0)
== END ==
LOC: ONC 12:46 → EDSTATUS 16:43
PROVIDERS: ATTEND Internal Medicine Hematology & Oncology
DX: C91.10 Chronic lymphocytic leukemia of B-cell type not having achieved remission (principal); Z79.82 Long term (current) use of aspirin
CPT/HCPCS: 80053; 83615; 85025; G0463; 99213

== ENCOUNTER → 2020-10-11 | Outpatient (CLI) | payer MEDICARE ==
[2020-10-11 13:48] LABS: BASOPHILS # (AUTO) 0.1 10^3/uL (0.0-0.1); BASOPHILS % (AUTO) 0 % (0-10); EOSINOPHILS # (AUTO) 0.2 10^3/uL (0.0-0.3); EOSINOPHILS % (AUTO) 1 % (0-10); HEMATOCRIT 49 % (40-54); HEMOGLOBIN 15.6 g/dL (13.3-17.7); LYMPHOCYTES # (AUTO) 12.9 10^3/uL (1.0-4.0); LYMPHOCYTES % (AUTO) 66 % (12-44); MEAN CORPUSCULAR HEMOGLOBIN 30 pg (25-34); MEAN CORPUSCULAR HGB CONC 32 g/dL (32-36); MEAN CORPUSCULAR VOLUME 94 fL (80-99); MEAN PLATELET VOLUME 11.3 fL (9.0-12.2); MONOCYTES # (AUTO) 1.7 10^3/uL (0.0-1.0); MONOCYTES % (AUTO) 9 % (0-12); NEUTROPHILS # (AUTO) 4.7 10^3/uL (1.8-7.8); NEUTROPHILS % (AUTO) 24 % (42-75); PLATELET COUNT 173 10^3/uL (130-400); WHITE BLOOD COUNT 19.6 10^3/uL (4.3-11.0)
[2020-10-11 14:10] LABS: ALBUMIN 4.1 GM/DL (3.2-4.5); BILIRUBIN,TOTAL 0.7 MG/DL (0.1-1.0); CALCIUM 8.5 MG/DL (8.5-10.1); CREATININE SERUM 1.24 MG/DL (0.60-1.30); POTASSIUM 4.3 MMOL/L (3.6-5.0); TOTAL PROTEIN 6.4 GM/DL (6.4-8.2)
== END ==
LOC: ONC 13:40
PROVIDERS: ATTEND Internal Medicine Hematology & Oncology
DX: C91.11 Chronic lymphocytic leukemia of B-cell type in remission (principal)
CPT/HCPCS: 80053; 83615; 85025; G0463; 99213

== ENCOUNTER 2020-12-29 09:13 | Outpatient (CLI) | payer MEDICARE ==
[~2020-12-29] VITALS: Ht 175.3 cm; Wt 86.2 kg
[2020-12-29 09:10] VITALS: BP 126/76
[2020-12-29] MEDS ORDERED: CASIRIVIMAB/IMDEVIMAB 1,200 MG in NS (IVPB) 250 ML IV ONE (09:30)
[2020-12-29] MEDS ORDERED: EPINEPHrine INJECTION 1 MG/ML AMP IM PRN (09:30)
[2020-12-29] MEDS ORDERED: diphenhydrAMINE 50 MG/ML INJ (BENADRYL) IV PRN (09:30)
[2020-12-29 10:15] VITALS: BP 117/66
[2020-12-30] MEDS ORDERED: AZIT500T9 PO (13:10)
[2020-12-30] MEDS ORDERED: MELO15TA39 PO (13:10)
[2020-12-30] MEDS ORDERED: ATOR20TA66 PO (13:10)
[2020-12-30] MEDS ORDERED: MTP25TSR PO (13:10)
[2020-12-30] MEDS ORDERED: PRD50T PO (13:10)
== END 2020-12-29 11:07 ==
LOC: INFUSION 09:13
PROVIDERS: ATTEND Nurse Practitioner Family
DX: Z23 Encounter for immunization (principal); U07.1 COVID-19

== ENCOUNTER 2020-12-29 14:38 | Inpatient (IN) | payer MEDICARE ==
[~2020-12-29] VITALS: Ht 170 cm; Wt 87.1 kg
[2020-12-29] MEDS ORDERED: ACETAMINOPHEN 500 MG TAB (TYLENOL) PO PRN (15:15)
[2020-12-29] MEDS ORDERED: NS IV 1000 ML 1,000 ML IV SCH (15:15)
[2020-12-29 15:32] VITALS: BP 104/61
--- NOTE | 2020-12-29 15:38 | Diagnostic Imaging Report ---
INDICATION: Respiratory distress, COVID positive. EXAMINATION: Portable chest at 03:19 p.m. FINDINGS: There are postop changes from CABG surgery. Heart size and pulmonary vascularity are normal. Lungs are clear. There are no effusions or pneumothoraces. IMPRESSION: No acute abnormalities in the chest. Dictated by: Dictated on workstation # [id number]
--- NOTE | 2020-12-29 15:41 | ED Respiratory ---
General Chief Complaint: Cough/Cold/Flu Symptoms Stated Complaint: COVID POSITIVE Nursing Triage Note: PT TO ROOM 7 PER W/C PT CO OF FEVER, SOA AND BEING COVID +. PT STATES ALSO HAS GOTTEN INFUSION REGENERON TODAY FOR COVID. PT STATES CONT TO FEEL WORSE. Source: patient, EMS Exam Limitations: no limitations History of Present Illness Date Seen by Provider: Dec 29, 2020 Time Seen by Provider: 14:40 Initial Comments Patient presents ER by EMS from home with chief complaint that he has been about 3 days positive with Covid and about a day before that with symptoms from outside lab. Shahana Marie is his PCP. He has no history of lung disease nor does he smoke cigarettes. He does have a history of coronary disease. He got his infusion of monoclonal antibodies this morning at the hospital and then after going home this afternoon he started getting hit with severe shortness of air on exertion as well as rest. He does not use oxygen at baseline. He does not have any chest pain nausea diarrhea constipation. Poor appetite and drinking here lately. Allergies and Home Medications Allergies Coded Allergies: No Known Drug Allergies (Unverified , 12/29/20) Home Medications Amlodipine Besylate 10 Mg Tablet, 10 MG PO DAILY, (Reported) Aspirin 81 Mg Tab.chew, 81 MG PO DAILY, (Reported) [place] 3 Polyunsat Fatty Acids 1,000 Mg Cap, 1,000 MG PO DAILY, (Reported) Pantoprazole Sodium 40 Mg Tablet.dr, 40 MG PO DAILY, (Reported) Simvastatin 40 Mg Tablet, 40 MG PO DAILY, (Reported) Vitamin E Acetate 400 Unit Capsule, 400 UNIT PO DAILY, (Reported) Patient Home Medication List Home Medication List Reviewed: Yes Review of Systems Review of Systems Constitutional: No chills, No fever EENTM: No ear discharge, No ear pain Respiratory: cough; No phlegm; short of breath; No wheezing Cardiovascular: No chest pain, No Hx of Intervention, No palpitations Gastrointestinal: No abdominal pain, No constipation, No nausea Genitourinary: No discharge, No dysuria Musculoskeletal: No back pain, No joint pain Psychiatric/Neurological: Denies Anxiety, Denies Depressed All Other Systems Reviewed Negative Unless Noted: Yes Past Tbysfbr-Hycxxd-Pzrfbw Hx Patient Social History Tobacco Use?: No Use of E-Cig and/or Vaping dev: No Substance use?: No Seasonal Allergies Seasonal Allergies: No Past Medical History Reproductive Disorders: No Family Medical History Cancer 03 FATHER Family history: Cardiovascular disease 09 BROTHER, Onset:60 years & older (OPEN HEART SURGERY ) 09 SISTER Stroke 03 MOTHER (MULTIPLE TIA'S) Physical Exam Vital Signs - First Documented 12/29/20 15:00 Temp 38.4 Pulse 90 Resp 40 B/P (MAP) 139/74 (95) Pulse Ox 92 O2 Delivery Nasal Cannula O2 Flow Rate 3.00 Capillary Refill : Less Than 3 Seconds Height: 5'10.00" Weight: 191lbs. 0.0oz. 86.995188py; 29.00 BMI Method:Estimated General Appearance: WD/WN, moderate distress Eyes: Bilateral Eye Normal Inspection, Bilateral Eye PERRL, Bilateral Eye EOMI HEENT: PERRL/EOMI; No pharynx normal (Dry oral mucosa) Neck: full range of motion, normal inspection Respiratory: lungs clear, normal breath sounds, respiratory distress (Moderate with oxygen saturations of 90% and respiratory rate 40 breaths/min), accessory muscle use; No crackles, No rales, No wheezing Cardiovascular: normal peripheral pulses, regular rate, rhythm, tachycardia Gastrointestinal: non tender, soft Neurologic/Psychiatric: alert, normal mood/affect, oriented x 3 Skin: normal color, warm/dry Focused Exam Lactate Level 12/29/20 15:05: Lactic Acid Level 2.19*H Lactic Acid Level Laboratory Tests Test 12/29/20 15:05 Lactic Acid Level 2.19 MMOL/L (0.50-2.00) *H Progress/Results/Core Measures Suspected Sepsis SIRS Temperature: Pulse: 86 Respiratory Rate: 23 Laboratory Tests 12/29/20 15:05: White Blood Count 16.0H Blood Pressure 104 /61 Mean: 95 12/29/20 15:05: Lactic Acid Level 2.19*H Laboratory Tests 12/29/20 15:05: Creatinine 1.10, INR Comment 1.0, Platelet Count 148, Total Bilirubin 1.0 Results/Orders Lab Results Laboratory Tests Test 12/29/20 15:05 12/29/20 15:08 Range/Units White Blood Count 16.0 H 4.3-11.0 10^3/uL Red Blood Count 5.02 4.30-5.52 10^6/uL Hemoglobin 15.2 13.3-17.7 g/dL Hematocrit 45 40-54 % Mean Corpuscular Volume 89 80-99 fL Mean Corpuscular Hemoglobin 30 25-34 pg Mean Corpuscular Hemoglobin Concent 34 32-36 g/dL Red Cell Distribution Width 13.9 10.0-14.5 % Platelet Count 148 130-400 10^3/uL Mean Platelet Volume 12.6 H 9.0-12.2 fL Immature Granulocyte % (Auto) 1 % Neutrophils (%) (Auto) 52 42-75 % Lymphocytes (%) (Auto) 43 12-44 % Monocytes (%) (Auto) 4 0-12 % Eosinophils (%) (Auto) 0 0-10 % Basophils (%) (Auto) 0 0-10 % Neutrophils # (Auto) 8.2 H 1.8-7.8 10^3/uL Lymphocytes # (Auto) 6.9 H 1.0-4.0 10^3/uL Monocytes # (Auto) 0.6 0.0-1.0 10^3/uL Eosinophils # (Auto) 0.0 0.0-0.3 10^3/uL Basophils # (Auto) 0.0 0.0-0.1 10^3/uL Immature Granulocyte # (Auto) 0.2 H 0.0-0.1 10^3/uL Neutrophils % (Manual) 43 % Lymphocytes % (Manual) 33 % Monocytes % (Manual) 6 % Eosinophils % (Manual) 0 % Basophils % (Manual) 0 % Band Neutrophils 4 % Reactive Lymphocytes 14 % Poikilocytosis SLIGHT Prothrombin Time 13.2 12.2-14.7 SEC INR Comment 1.0 0.8-1.4 Activated Partial Thromboplast Time 29 24-35 SEC D-Dimer 0.58 H 0.00-0.49 UG/ML Sodium Level 138 135-145 MMOL/L Potassium Level 3.7 3.6-5.0 MMOL/L Chloride Level 103 98-107 MMOL/L Carbon Dioxide Level 22 21-32 MMOL/L Anion Gap 13 5-14 MMOL/L Blood Urea Nitrogen 33 H 7-18 MG/DL Creatinine 1.10 0.60-1.30 MG/DL Estimat Glomerular Filtration Rate 64 BUN/Creatinine Ratio 30 Glucose Level 139 H 70-105 MG/DL Lactic Acid Level 2.19 *H 0.50-2.00 MMOL/L Calcium Level 8.6 8.5-10.1 MG/DL Corrected Calcium 8.9 8.5-10.1 MG/DL Total Bilirubin 1.0 0.1-1.0 MG/DL Aspartate Amino Transf (AST/SGOT) 37 H 5-34 U/L Alanine Aminotransferase (ALT/SGPT) 32 0-55 U/L Alkaline Phosphatase 101 40-136 U/L Troponin I < 0.028 <0.028 NG/ML C-Reactive Protein High Sensitivity 3.34 H 0.00-0.50 MG/DL Total Protein 6.2 L 6.4-8.2 GM/DL Albumin 3.6 3.2-4.5 GM/DL Blood Gas Puncture Site LFT RAD Blood Gas Patient Temperature 101.3 Arterial Blood pH 7.43 7.37-7.43 Arterial Blood Partial Pressure CO2 34 L 35-45 MMHG Arterial Blood Partial Pressure O2 103 H 79-93 MMHG Arterial Blood HCO3 22 L 23-27 MMOL/L Arterial Blood Total CO2 22.9 21.0-31.0 MMOL/L Arterial Blood Oxygen Saturation 96 94-100 % Arterial Blood Base Excess -1.5 -2.5-2.5 MMOL/L Geovany Test POS Blood Gas Ventilator Setting NO Blood Gas Inspired Oxygen 4L My Orders Orders - CHARLETTE,DARRIN J Cbc With Automated Diff (12/29/20 15:13) Comprehensive Metabolic Panel (12/29/20 15:13) Blood Culture (12/29/20 15:13) Sputum Culture (12/29/20 15:13) Urinalysis (12/29/20 15:13) Urine Culture (12/29/20 15:13) Protime With Inr (12/29/20 15:13) Partial Thromboplastin Time (12/29/20 15:13) Chest 1 View, Ap/Pa Only (12/29/20 15:13) Acetaminophen Tablet (Tylenol Tablet) (12/29/20 15:15) Ed Iv/Invasive Line Start (12/29/20 15:13) Ed Iv/Invasive Line Start (12/29/20 15:13) Ekg Tracing (12/29/20 15:13) Troponin I (12/29/20 15:13) Vital Signs Adult Sepsis Patie Q15M (12/29/20 15:13) O2 (12/29/20 15:13) Remove Rings In Anticipation O (12/29/20 15:13) Lactic Acid Analyzer (12/29/20 15:13) Ns Iv 1000 Ml (Sodium Chloride 0.9%) (12/29/20 15:15) Covid-19 External Lab Results (12/29/20 15:17) Arterial Blood Gas (12/29/20 15:17) Fibrin Degradation Products (12/29/20 15:41) Hs C Reactive Protein (12/29/20 15:05) Procalcitonin (Pct) (12/29/20 15:05) Manual Differential (12/29/20 15:05) Dexamethasone Injection (Decadron Inje (12/29/20 16:30) Medications Given in ED Current Medications Medications Dose Ordered Sig/Haydee Route Start Time Stop Time Status Last Admin Dose Admin Acetaminophen 1,000 mg ONCE PRN PO 12/29/20 15:15 12/29/20 15:23 DC 12/29/20 15:22 1,000 MG Vital Signs/I&O 12/29/20 12/29/20 12/29/20 15:00 15:00 15:32 Temp 38.4 Pulse 90 86 Resp 40 23 B/P (MAP) 139/74 (95) Pulse Ox 92 91 97 O2 Delivery Nasal Cannula Room Air O2 Flow Rate 3.00 25.00 Capillary Refill : Less Than 3 Seconds Blood Pressure Mean: 95 Progress Note : Time: 15:39 Progress Note Oxygen mask was initiated at 6 L which brought him up to the mid 90s. We titrated it down to 4 L and switched him over to BiPAP as he was still having increased work of breathing and respiratory rate north of 40 breaths/min. Put him on 12 over a 25% FiO2. Patient tolerating it so far. Plan to hold onto him for respiratory failure associated with COVID-19. ECG Initial ECG Impression Date: Dec 29, 2020 Initial ECG Impression Time: 15:49 Initial ECG Rate: 82 Initial ECG Rhythm: Normal Sinus Initial ECG Intervals: Normal Initial ECG Impression: Normal Comment Normal sinus rhythm without clinically relevant ST elevation or depression. Diagnostic Imaging Diagonstic Imaging: Xray Plain Films/CT/US/NM/MRI: chest Comments Poststernotomy changes. Diffuse scattered interstitial markings possibly an atypical pneumonia. [facility] [place], [place] NAME: KATALINA MOREIRA [facility] REC#: [id number] PT STATUS: REG ER : 1935 PHYSICIAN: DARRIN OVALLES MD ADMIT DATE: 12/29/20/ER Draft Date of Exam:12/29/20 CHEST 1 VIEW, AP/PA ONLY INDICATION: Respiratory distress, COVID positive. EXAMINATION: Portable chest at 03:19 p.m. FINDINGS: There are postop changes from CABG surgery. Heart size and pulmonary vascularity are normal. Lungs are clear. There are no effusions or pneumothoraces. IMPRESSION: No acute abnormalities in the chest. Dictated on workstation # [id number] Dict: 12/29/20 1534 Trans: 12/29/20 1537 [id number] Interpreted by: TARAN SERRANO MD Electronically signed by: Reviewed: Reviewed by Me Departure Communication (Admissions) Time/Spoke to Admitting Phy: 16:20 Discussed the case with Dr. La and he agrees to admit the patient to the ICU Impression Primary Impression: COVID-19 Additional Impression: Acute hypoxemic respiratory failure due to severe acute respiratory syndrome coronavirus 2 (SARS-CoV-2) disease Disposition: ADMITTED INPATIENT Condition: Stable Admissions Decision to Admit Reason: Admit from ER (General) Decision to Admit/Date: Dec 29, 2020 Time/Decision to Admit Time: 15:29 Departure-Patient Inst. Referrals: SHAHANA MARIE MD (PCP/Family) Primary Care Physician DARRIN OVALLES Dec 29, 2020 15:41
[2020-12-29 15:47] LABS: ABG BASE EXCESS -1.5 MMOL/L (-2.5-2.5); ABG OXYGEN SATURATION 96 % (94-100); ABG PCO2 34 MMHG (35-45); ABG PH 7.43 (7.37-7.43); ABG PO2 103 MMHG (79-93); ABG TCO2 22.9 MMOL/L (21.0-31.0)
[2020-12-29 15:58] LABS: ALBUMIN 3.6 GM/DL (3.2-4.5); BASOPHILS % (AUTO) 0 % (0-10); CHLORIDE 103 MMOL/L (98-107); EOSINOPHILS % (AUTO) 0 % (0-10); HEMATOCRIT 45 % (40-54); HEMOGLOBIN 15.2 g/dL (13.3-17.7); LYMPHOCYTES # (AUTO) 6.9 10^3/uL (1.0-4.0); LYMPHOCYTES % (AUTO) 43 % (12-44); MEAN CORPUSCULAR HEMOGLOBIN 30 pg (25-34); MEAN CORPUSCULAR HGB CONC 34 g/dL (32-36); MEAN CORPUSCULAR VOLUME 89 fL (80-99); MEAN PLATELET VOLUME 12.6 fL (9.0-12.2); MONOCYTES # (AUTO) 0.6 10^3/uL (0.0-1.0); MONOCYTES % (AUTO) 4 % (0-12); NEUTROPHILS # (AUTO) 8.2 10^3/uL (1.8-7.8); NEUTROPHILS % (AUTO) 52 % (42-75); PLATELET COUNT 148 10^3/uL (130-400); POTASSIUM 3.7 MMOL/L (3.6-5.0); SODIUM 138 MMOL/L (135-145)
[2020-12-29 15:59] LABS: CALCIUM 8.6 MG/DL (8.5-10.1)
[2020-12-29 16:01] LABS: GLUCOSE 139 MG/DL (70-105); TOTAL PROTEIN 6.2 GM/DL (6.4-8.2)
[2020-12-29 16:02] LABS: CARBON DIOXIDE 22 MMOL/L (21-32); PROTHROMBIN TIME PATIENT 13.2 SEC (12.2-14.7)
[2020-12-29 16:04] LABS: ALKALINE PHOSPHATASE 101 U/L (40-136); GFR ESTIMATED 64
[2020-12-29 16:05] LABS: BUN/CREATININE RATIO 30
[2020-12-29 16:07] LABS: ALANINE AMINOTRANSFERASE 32 U/L (0-55)
[2020-12-29 16:14] LABS: BAND NEUTROPHILS 4 %; BASOPHILS % (MANUAL) 0 %; EOSINOPHILS % (MANUAL) 0 %; LYMPHOCYTES % (MANUAL) 33 %; MONOCYTES % (MANUAL) 6 %; NEUTROPHILS % (MANUAL) 43 %; POIKILOCYTOSIS SLIGHT; REACTIVE LYMPHOCYTES 14 %
[2020-12-29 16:26] LABS: ALLENS TEST POS; INSPIRED O2 4L; PATIENT TEMP 101.3; VENTILATOR NO
[2020-12-29] MEDS ORDERED: LACTATED RINGERS 1,000 ML IV ONE (17:11)
--- NOTE | 2020-12-29 18:14 | Tele-ICU Consult ---
History of Present Illness History of Present Illness Date Seen by Provider: Dec 29, 2020 Time Seen by Provider: 18:13 Date of Admission Allergies and Home Medications Allergies Coded Allergies: No Known Drug Allergies (Unverified , 12/29/20) Home Medications Amlodipine Besylate 10 Mg Tablet, 10 MG PO DAILY, (Reported) Aspirin 81 Mg Tab.chew, 81 MG PO DAILY, (Reported) Vista 3 Polyunsat Fatty Acids 1,000 Mg Cap, 1,000 MG PO DAILY, (Reported) Pantoprazole Sodium 40 Mg Tablet.dr, 40 MG PO DAILY, (Reported) Simvastatin 40 Mg Tablet, 40 MG PO DAILY, (Reported) Vitamin E Acetate 400 Unit Capsule, 400 UNIT PO DAILY, (Reported) Past Medical/Social/Family Hx Patient Social History Tobacco Use?: No Smoking Status: Never a Smoker Smokeless Tobacco Frequency: Never a User Use of E-Cig and/or Vaping dev: No E-Cig and/or Vaping Freq: Never a User Substance use?: No Alcohol Use?: No Pt stated abuse/neglect: No Immunizations Up To Date Influenza Vaccine Up-to-Date: Yes; Up-to-Date Tetanus Booster (TDap): Unknown Hepatitis A: No Hepatitis B: No TB Skin Test: None Current Status Advance Directives: No Communicates: Verbally Primary Language: Palauan Preferred Spoken Language: Palauan Is interpretation needed?: No Implanted or Applied Medical D: None Review of Systems Constitutional: see HPI Sepsis Event Evaluation Height, Weight, BMI Height: 5'10.00" Weight: 191lbs. 0.0oz. 86.773816ms; 29.75 BMI Method:Estimated Exam Exam Patient acknowledged, consented, and participated in this virtual visit which was conducted using real time audio/video Vital Signs Date Time Temp Pulse Resp B/P (MAP) Pulse Ox O2 Delivery O2 Flow Rate FiO2 12/29/20 17:52 99 OxyMask 8.00 12/29/20 17:24 36.0 94 22 138/90 (106) 99 OxyMask 8.00 12/29/20 17:21 78 12/29/20 17:11 37.1 72 23 104/61 (95) 97 Nasal Cannula 5.00 12/29/20 15:32 86 23 97 25.00 12/29/20 15:00 38.4 90 40 139/74 (95) 91 Room Air 12/29/20 15:00 92 Nasal Cannula 3.00 Height & Weight Height: 5'10.00" Weight: 191lbs. 0.0oz. 86.252473mv; 29.75 BMI Method:Estimated General Appearance: Mild Distress Capillary Refill: Less Than 3 Seconds Gastrointestinal: non tender, soft Results Lab Laboratory Tests 12/29/20 15:05 Assessment/Plan Assessment/Plan (Tele-ICU Physician , consultation) Available chart/ vitals / labs / Images reviewed H&P is from ER notes Patient's information available about PMH, Shx, Fhx allergy reviewed in EMR. ROS as per chart and RN report Patient admitted 12/29 with COVID , resp failure Now in ICU, hemodynamically stable Video assessment done using teleICU camera, rest of exam as per RN Discussed with RN. 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 Elevated lactate with work of brating RR > 40 and hypoxix - not revlexion of sepsis severity Lines : periph (Central Line Necessity Reviewed) Jin: OG: Nutrition: Analgesia: Anxiety/ delirium VTE Prophylaxis: Stress Ulcer Prophylaxis: Glycemic Control: Plans in collaboration with bedside consultants and IM MDs. Discussed with RN to reach out if any questions or concerns A total of 36 minutes of critical care time was devoted to this patient today, required to treat and/or prevent further deterioration of critical care condition ( as above ) . SHER TORRES MD Dec 29, 2020 18:14
[2020-12-29] MEDS: LACTATED RINGERS 1,000 ML IV SCH (18:47)
[2020-12-29 18:56] VITALS: BP 115/68
[2020-12-29] MEDS: ENOXAPARIN 40 MG/0.4 ML (LOVENOX) SYR SC SCH (18:56)
[2020-12-29] MEDS ORDERED: RT-ALBUTEROL INHALER HFA (VENTOLIN HFA) 18 GM IH PRN (19:00)
[2020-12-30] MEDS: LACTATED RINGERS 1,000 ML IV SCH ×3 (00:11→14:39)
[2020-12-30 04:03] LABS: BASOPHILS % (AUTO) 0 % (0-10); EOSINOPHILS % (AUTO) 0 % (0-10); HEMATOCRIT 43 % (40-54); HEMOGLOBIN 14.1 g/dL (13.3-17.7); LYMPHOCYTES # (AUTO) 6.2 10^3/uL (1.0-4.0); LYMPHOCYTES % (AUTO) 40 % (12-44); MEAN CORPUSCULAR HEMOGLOBIN 30 pg (25-34); MEAN CORPUSCULAR HGB CONC 33 g/dL (32-36); MEAN CORPUSCULAR VOLUME 91 fL (80-99); MEAN PLATELET VOLUME 12.3 fL (9.0-12.2); MONOCYTES # (AUTO) 0.4 10^3/uL (0.0-1.0); MONOCYTES % (AUTO) 3 % (0-12); NEUTROPHILS # (AUTO) 8.7 10^3/uL (1.8-7.8); NEUTROPHILS % (AUTO) 56 % (42-75); PLATELET COUNT 137 10^3/uL (130-400); WHITE BLOOD COUNT 15.5 10^3/uL (4.3-11.0)
[2020-12-30 04:09] LABS: POTASSIUM 4.1 MMOL/L (3.6-5.0)
[2020-12-30 04:11] LABS: CALCIUM 8.1 MG/DL (8.5-10.1)
[2020-12-30 04:15] LABS: CREATININE SERUM 1.01 MG/DL (0.60-1.30); PHOSPHORUS 3.5 MG/DL (2.3-4.7)
[2020-12-30 04:17] LABS: MAGNESIUM 2.1 MG/DL (1.6-2.4)
[2020-12-30] MEDS ORDERED: KCL 20 MEQ TAB (K-DUR) PO SCH (06:00)
[2020-12-30] MEDS ORDERED: MAGNESIUM 1 GM/100 ML IVPB 100 ML IV SCH (06:00)
[2020-12-30] MEDS ORDERED: POTASSIUM CL 10MEQ/50ML IVPB 50 ML IV SCH (06:00)
--- NOTE | 2020-12-30 07:23 | Diagnostic Imaging Report ---
Indication: Respiratory failure Portable chest 3:13 AM There are postoperative changes from CABG surgery. Heart size and pulmonary vascularity are normal. Lungs are clear. There are no effusions or pneumothoraces. IMPRESSION: No acute abnormalities in the chest. Dictated by: Dictated on workstation # [id number]
[2020-12-30] MEDS ORDERED: MTP25TSR PO (13:10)
[2020-12-30] MEDS ORDERED: ATOR20TA66 PO (13:10)
[2020-12-30] MEDS ORDERED: MELO15TA39 PO (13:10)
[2020-12-30] MEDS ORDERED: PRD50T PO (13:10)
[2020-12-30] MEDS ORDERED: AZIT500T9 PO (13:10)
--- NOTE | 2020-12-30 13:38 | Physical Therapy Evaluation ---
PT Evaluation-General Medical Diagnosis Admission Date Dec 29, 2020 at 16:00 Medical Diagnosis: covid 19 Onset Date: Dec 29, 2020 Therapy Diagnosis Therapy Diagnosis: impaired mobility, endurance Height/Weight Height (Feet): 5 Height (Inches): 10.00 Weight (Pounds): 191 Weight (Ounces): 0.0 Precautions Precautions/Isolations: Airborne Isolation, Contact Isolation, Droplet Isolation, Fall Prevention Referral Physician: Abhinav Reason for Referral: Evaluation/Treatment Medical History Reviewed History: Yes Social History Home: Single Level Current Living Status: Spouse Entry Into Home: Stairs Without Railing PT Steps Into Home: 1 Prior Prior Level of Function SCALE: Activities may be completed with or without assistive devices. 4-Selzpxzawj-wnqgrvj completes the activity by him/herself with no assistance from a helper. 5-Set-up or Clean-up Assistance-helper sets up or cleans up; patient completes activity. [place] assists only prior to or following the activity. 4-Supervision or Touching Assistance-helper provides verbal cues and/or touching/steadying and/or contact guard assistance as patient completes activity. Assistance may be provided throughout the activity or intermittently. 3-Partial/Moderate Assistance-helper does LESS THAN HALF the effort. [place] lifts, holds or supports trunk or limbs, but provides less than half the effort. 2-Substantial/Maximal Assistance-helper does MORE THAN HALF the effort. [place] lifts or holds trunk or limbs and provides more than half the effort. 0-Ncxoxgmub-bpikzi does ALL the effort. Patient does none of the effort to complete the activity. Or, the assistance of 2 or more helpers is required for the patient to complete the activity. If activity was not attempted, code reason: 7-Patient Refused. 9-Not Applicable-not attempted and the patient did not perform the activity before the current illness, exacerbation or injury. 10-Not Attempted due to Environmental Limitations-(lack of equipment, weather restraints, etc.). 88-Not Attempted due to Medical Conditions or Safety Concerns. Bed Mobility: 6 Transfers (B,C,W/C): 6 Gait: 6 Stairs: 6 Indoor Mobility (Ambulation): Independent Stairs: Independent PT Evaluation-Current Subjective Patient in bed pre tx, agrees to PT, has no complaints of pain. Pt/Family Goals to be independent at home Objective Patient Orientation: Person, Place, Situation Attachments: Oxygen, IV ROM/Strength ROM Lower Extremities WNL Strength Lower Extremities 5/5 gross BLE Sensory Vision: Functional Hearing: Functional Sensation Right Lower Extremit: Intact Sensation Left Lower Extremity: Intact Transfers Roll Left to Right (QC): 6 Sit to Lying (QC): 6 Lying to Sitting/Side of Bed(Q: 6 Sit to Stand (QC): 4 Chair/Qhp-li-Dnjil Xfer(QC): 4 Gait Does the Patient Walk?: Yes Mode of Locomotion: Walk Anticipated Mode of Locomotion: Walk Walk 10 feet (QC): 4 Walk 50 ft with 2 Turns(QC): 4 Distance: 80' Gait Assistive Device: None Comments/Gait Description SBA, slight unsteadiness just after standing up but no LOB, normal ambulation after a few steps. Slight SOB after about 80', O2 was 95% after ambulation Balance Sitting Static: Normal Sitting Dynamic: Normal Standing Static: Normal Standing Dynamic: Good Treatment supine BLE exercises x20 (AP, HS) Assessment/Needs Patient has impaired mobility and endurance. Patient in bed post tx with nurse call, phone, tray, all needs met. Patient ambulates without an assistive device with SBA. 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[place] [place] Goals Time Frame: Jan 06, 2021 Roll Left & Right (QC): 6 Sit to Lying (QC): 6 Lying-Sitting on Side/Bed(QC): 6 Sit to Stand (QC): 6 Chair/Wsn-wv-Htfna Xfer(QC): 6 Walk 10 feet (QC): 6 Walk 50ft with 2 Turns (QC): 6 Walk 150 ft (QC): 6 PT Plan Problem List Problem List: Activity Tolerance, Functional Strength, Safety, Balance, Gait, Transfer, ROM Treatment/Plan Treatment Plan: Continue Plan of Care Treatment Plan: Education, Functional Activity Enrique, Functional Strength, Gait, Safety, Therapeutic Exercise, Transfers Treatment Duration: Jan 06, 2021 Frequency: 6 times per week Estimated Hrs Per Day: .25 hour per day Patient and/or Family Agrees t: Yes Safety Risks/Education Patient Education: Gait Training, Transfer Techniques, Correct Positioning, Safety Issues Teaching Recipient: Patient Teaching Methods: Demonstration, Discussion Response to Teaching: Reinforcement Needed Discharge Recommendations Plan Patient will perform bed mobility and transfer training, balance and endurance training, functional strengthening, stair training, gait training, and education, to improve functional mobility and independence at home. Therapy Discharge Recommendati: Home & Family, Post Acute PT Time/GCodes Time In: 1300 Time Out: 1312 Total Billed Treatment Time: 12 Total Billed Treatment 1 visit EVBaltazar 12' MALI HOOVER PT Dec 30, 2020 13:38
--- NOTE | 2020-12-30 13:42 | Occupational Therapy Eval ---
OT Evaluation-General/PLF Medical Diagnosis Admission Date Dec 29, 2020 at 16:00 Medical Diagnosis: COVID-19, acute respiratory failure Onset Date: Dec 28, 2020 Therapy Diagnosis Therapy Diagnosis: weakness, decreased activity tolerance Height/Weight Height (Feet): 5 Height (Inches): 10.00 Weight (Pounds): 191 Weight (Ounces): 0.0 Precautions Precautions/Isolations: Airborne Isolation, Contact Isolation, Droplet Isolation, Fall Prevention Referral Physician: Abhinav Referral Reason: Evaluation/Treatment Medical History Current History ED with c/o fever, SOA, COVID+ Social History Home: Single Level Current Living Status: Spouse Steps Into Home: 1 ADL-Prior Level of Function SCALE: Activities may be completed with or without assistive devices. 2-Ggftptpvcx-qohgudg completes the activity by him/herself with no assistance from a helper. 5-Set-up or Clean-up Assistance-helper sets up or cleans up; patient completes activity. [place] assists only prior to or following the activity. 4-Supervision or Touching Assistance-helper provides verbal cues and/or touching/steadying and/or contact guard assistance as patient completes activity. Assistance may be provided throughout the activity or intermittently. 3-Partial/Moderate Assistance-helper does LESS THAN HALF the effort. [place] lifts, holds or supports trunk or limbs, but provides less than half the effort. 2-Substantial/Maximal Assistance-helper does MORE THAN HALF the effort. [place] lifts or holds trunk or limbs and provides more than half the effort. 6-Vllydzzsr-hfjohf does ALL the effort. Patient does none of the effort to complete the activity. Or, the assistance of 2 or more helpers is required for the patient to complete the activity. If activity was not attempted, code reason: 7-Patient Refused. 9-Not Applicable-not attempted and the patient did not perform the activity before the current illness, exacerbation or injury. 10-Not Attempted due to Environmental Limitations-(lack of equipment, weather restraints, etc.). 88-Not Attempted due to Medical Conditions or Safety Concerns. ADL PLOF Comments Pt reports IND with ADLs and functional mobility at PLOF, no AD/AE Self Care: Independent Functional Cognition: Independent DME/Equipment: Bath Chair, Shower OT Current Status Subjective Pt laying in bed, agreeable to OT evaluation and tx. Mental Status/Objective Patient Orientation: Person, Place, Time, Situation Attachments: IV, Oxygen, Telemetry Current Upper Extremity ROM WFL, BUE shoulder flexion to approx 140 degrees Upper Extremity Coordination WFL Upper Extremity Sensation WFL Upper Extremity Strength grossly 4/5 BUEs ADL-Treatment Eating (QC): 6 (Per pt report) On/Off Footwear (QC): 6 (IND with gripper socks.) Toileting Hygiene (QC): 6 (IND with urinal) Other Treatments Pt in bed, agreeable to OT tx. OT educated pt on purpose and benefit of OT, he verbalized understanding. Pt provided information about PLOF and home set up and participated in UE screen. Pt performed functional mobility around his room, no AD, x80' with SBA due to IV and O2 lines. He returned to bed. OT educated pt on UE exercises in order to increase pulmonary function, UE strength, and activity tolerance. Pt completed x10 reps each for the following BUES: shoulder flexion, elbow flexion/extension, and finger flexion/extension. Pt's O2 saturation remained above 90% throughout tx. Post tx, pt laying in bed, call light in reach and all needs met. Education OT Patient Education: Correct positioning, Modified ADL techniques, Progress toward Goal/Update tx plan, Purpose of tx/functional activities, Rehab process Teaching Recipient: Patient Teaching Methods: Discussion Response to Teaching: Verbalize Understanding OT [place] Goals Skilled Nursing Goals 1=Demonstrate adherence to instructed precautions during ADL tasks. 2=Patient will verbalize/demonstrate understanding of assistive devices/modifications for ADL. 3=Patient will improve strength/tolerance for activity to enable patient to perform ADL's. OT Education/Plan Problem List/Assessment Assessment: No Skilled OT Needs ID'd No skilled OT services indicated as pt is currently IND with ADLs and at PLOF Discharge Recommendations Plan/Recommendations: Discharge/Goals Met Treatment Plan/Plan of Care Treatment,Training & Education: Yes Patient would benefit from OT for education, treatment and training to promote independence in ADL's, mobility, safety and/or upper extremity function for ADL's. Plan of Care: ADL Retraining, Functional Mobility, UE Funct Exercise/Act Treatment Duration: Dec 30, 2020 Frequency: 1 time per week (eval only) Time/GCodes Start Time: 13:00 Stop Time: 13:15 Total Time Billed (hr/min): 15 Billed Treatment Time 1, JHONNY AGUILAR OT Dec 30, 2020 13:42
[2020-12-30] MEDS ORDERED: REMDESIVIR INJ 200 MG in NS (IVPB) 210 ML IV NR (14:00)
[2020-12-30] MEDS: guaiFENesin/DM (ROBITUSSIN DM) 10 ML UDC PO PRN ×2 (14:39→20:27)
--- NOTE | 2020-12-30 17:27 | History & Physical-Hospitalist ---
History of Present Illness HPI/Chief Complaint Arturo Smith is an 85-year-old male with past medical history of hypertension, hyperlipidemia, GERD, who presented with shortness of breath. He was recently diagnosed with Covid and received the monoclonal antibody infusion on the day of his arrival. He has been having fevers. He has been having a cough. Upon my examination, he is feeling very improved. He is not feeling short of breath. He still feels a bit weak. He denies nausea and vomiting. He says he has a good appetite. He is about to eat his breakfast. Source: patient Exam Limitations: no limitations Date Seen 12/30/20 Time Seen by a Provider: 09:15 Attending Physician Ana Canseco MD PCP Shahana Marie MD Referring Physician Date of Admission Dec 29, 2020 at 16:00 Home Medications & Allergies Home Medications Reviewed patient Home Medication Reconciliation performed by pharmacy medication reconciliations cable television line technician and/or nursing. Patients Allergies have been reviewed. Allergies Allergies Coded Allergies No Known Drug Allergies (Unverified12/29/20) Past Ihzqcad-Gjpxzm-Ntmodk Hx Patient Social History Tobacco Use?: No Smoking Status: Never a Smoker Smokeless Tobacco Frequency: Never a User Use of E-Cig and/or Vaping dev: No Use of E-Cig and/or Vaping Jacob: Never a User Substance use?: No Alcohol Use?: No Pt feels they are or have been: No Immunizations Up To Date Tetanus Booster (TDap): Unknown Hepatitis A: No Hepatitis B: No Seasonal Allergies Seasonal Allergies: No Current Status Advance Directives: No Communicates: Verbally Primary Language: Sammarinese Preferred Spoken Language: Sammarinese Is interpretation needed?: No Implanted or Applied Medical D: None Past Medical History High Cholesterol, Hypertension Gastroesophageal Reflux Family Medical History Cancer 03 FATHER Family history: Cardiovascular disease 09 BROTHER, Onset:60 years & older (OPEN HEART SURGERY ) 09 SISTER Stroke 03 MOTHER (MULTIPLE TIA'S) No Pertinent Family Hx Review of Systems Constitutional: fever, malaise EENTM: no symptoms reported Respiratory: cough, short of breath Cardiovascular: no symptoms reported Gastrointestinal: no symptoms reported Genitourinary: no symptoms reported Musculoskeletal: no symptoms reported Skin: no symptoms reported Psychiatric/Neurological: No Symptoms Reported Physical Exam Physical Exam Vital Signs Vital Signs - First Documented 12/29/20 15:00 Temp 38.4 Pulse 90 Resp 40 B/P (MAP) 139/74 (95) Pulse Ox 92 O2 Delivery Nasal Cannula O2 Flow Rate 3.00 Capillary Refill : Less Than 3 Seconds Height, Weight, BMI Height: 5'10.00" Weight: 191lbs. 0.0oz. 86.461419kr; 29.75 BMI Method:Estimated General Appearance: No Apparent Distress, WD/WN HEENT: PERRL/EOMI, Pharynx Normal Neck: Normal Inspection, Supple Respiratory: Lungs Clear, Normal Breath Sounds, No Respiratory Distress Cardiovascular: Regular Rate, Rhythm, No Edema, No Murmur Gastrointestinal: Normal Bowel Sounds, Non Tender, Soft Extremity: Normal Inspection, Non Tender, No Pedal Edema Neurologic/Psychiatric: Alert, Oriented x3, No Motor/Sensory Deficits, Normal Mood/Affect Skin: Normal Color, Warm/Dry Results Results/Procedures Labs Laboratory Tests 12/29/20 15:05 12/30/20 03:40 Patient resulted labs reviewed. Imaging: Reviewed Imaging Report Assessment/Plan Admission Diagnosis Acute respiratory failure due to COVID-19 Admission Status: Inpatient Order (span 2 midnights) Reason for Inpatient Admission: Requiring oxygen Assessment and Plan Acute respiratory failure due to COVID-19 COVID+ prior to arrival s/p monoclonal antibody infusion 12/29 Chest xray without acute abnormalities Started on Decadron Initially requiring BiPAP, now on nasal cannula Begin Remdesivir MAT protocol HTN HLD GERD Continue home meds DVT prophylaxis: Lovenox Diagnosis/Problems Diagnosis/Problems (1) Acute respiratory failure due to COVID-19 Status: Acute ANA CANSECO MD Dec 30, 2020 17:27
[2020-12-30] MEDS: ENOXAPARIN 40 MG/0.4 ML (LOVENOX) SYR SC SCH (18:16)
[2020-12-30] MEDS ORDERED: lisINopril 20 MG (PRINIVIL) TABLET ONE (18:47)
[2020-12-31 04:09] LABS: BASOPHILS % (AUTO) 0 % (0-10); EOSINOPHILS % (AUTO) 0 % (0-10); HEMATOCRIT 41 % (40-54); HEMOGLOBIN 13.5 g/dL (13.3-17.7); LYMPHOCYTES # (AUTO) 7.7 10^3/uL (1.0-4.0); LYMPHOCYTES % (AUTO) 47 % (12-44); MEAN CORPUSCULAR HEMOGLOBIN 30 pg (25-34); MEAN CORPUSCULAR HGB CONC 33 g/dL (32-36); MEAN CORPUSCULAR VOLUME 91 fL (80-99); MEAN PLATELET VOLUME 12.5 fL (9.0-12.2); MONOCYTES # (AUTO) 0.8 10^3/uL (0.0-1.0); MONOCYTES % (AUTO) 5 % (0-12); NEUTROPHILS # (AUTO) 7.7 10^3/uL (1.8-7.8); NEUTROPHILS % (AUTO) 47 % (42-75); PLATELET COUNT 130 10^3/uL (130-400); WHITE BLOOD COUNT 16.2 10^3/uL (4.3-11.0)
[2020-12-31 04:27] LABS: POTASSIUM 4.2 MMOL/L (3.6-5.0)
[2020-12-31 04:28] LABS: CALCIUM 7.9 MG/DL (8.5-10.1)
[2020-12-31 04:33] LABS: CREATININE SERUM 0.89 MG/DL (0.60-1.30); PHOSPHORUS 3.1 MG/DL (2.3-4.7)
[2020-12-31 04:35] LABS: MAGNESIUM 2.1 MG/DL (1.6-2.4)
[2020-12-31] MEDS: guaiFENesin/DM (ROBITUSSIN DM) 10 ML UDC PO PRN ×4 (05:42→20:03)
[2020-12-31] MEDS ORDERED: AZITHROMYCIN INJECTION 500 MG in NS (IVPB) 250 ML IV ONE (08:00)
[2020-12-31] MEDS ORDERED: NON-FORMULARY MEDICATION 1 EA EA (Meloxicam 15 MG) PO SCH (09:00)
[2020-12-31] MEDS: MELOXICAM 7.5 MG (MOBIC) TABLET PO SCH (09:32)
[2020-12-31] MEDS: cefTRIAXone 2,000 MG in WATER (STERILE) FOR INJECTION 20 ML IV SCH (09:32)
[2020-12-31] MEDS: PANTOPRAZOLE 40 MG (PROTONIX) TAB PO SCH (09:33)
[2020-12-31] MEDS: ASPIRIN 81 MG CHEW (CHILDREN'S ASA) PO SCH (09:33)
[2020-12-31] MEDS: amLODIPine 10 MG (NORVASC) TAB PO SCH (09:33)
--- NOTE | 2020-12-31 09:41 | Progress Note - Hospitalist ---
Subjective HPI/CC On Admission Date Seen by Provider: Dec 31, 2020 Time Seen by Provider: 07:55 Arturo Smith is an 85-year-old male with past medical history of hypertension, hyperlipidemia, GERD, who presented with shortness of breath. He was recently diagnosed with Covid and received the monoclonal antibody infusion on the day of his arrival. He has been having fevers. He has been having a cough. Upon my examination, he is feeling very improved. He is not feeling short of breath. He still feels a bit weak. He denies nausea and vomiting. He says he has a good appetite. He is about to eat his breakfast. Subjective/Events-last exam He is still not feeling very well. He says he was coughing all night. He does not feel short of breath. He is feeling weak. He is not having fevers. Focused Exam Lactate Level 12/29/20 15:05: Lactic Acid Level 2.19*H 12/29/20 18:41: Lactic Acid Level 1.21 Objective Exam Vital Signs Vital Signs Date Time Temp Pulse Resp B/P (MAP) Pulse Ox O2 Delivery O2 Flow Rate FiO2 12/31/20 07:18 93 Nasal Cannula 2.00 12/31/20 07:17 36.6 69 16 135/70 (91) Capillary Refill : Less Than 3 Seconds General Appearance: Mild Distress (Uncomfortable), Obese Respiratory: No Respiratory Distress, Decreased Breath Sounds Cardiovascular: Regular Rate, Rhythm, No Edema, No Murmur Gastrointestinal: Normal Bowel Sounds, Non Tender, Soft Extremity: Normal Inspection, Non Tender, No Pedal Edema Neurologic/Psychiatric: Alert, Oriented x3, No Motor/Sensory Deficits, Normal Mood/Affect Skin: Normal Color, Warm/Dry Results/Procedures Lab Laboratory Tests 12/31/20 03:53 Patient resulted labs reviewed. Imaging: Reviewed Imaging Report Assessment/Plan Assessment and Plan Assess & Plan/Chief Complaint Acute respiratory failure due to COVID-19 Bacterial pneumonia COVID+ prior to arrival s/p monoclonal antibody infusion 12/29 Continue Decadron Continue Remdesivir Initially requiring BiPAP, now on nasal cannula, stable Cough syrup as needed MAT protocol Procalcitonin trending up Add Rocephin and Azithromycin Debility PT/OT HTN HLD GERD Continue home meds DVT prophylaxis: Lovenox Diagnosis/Problems Diagnosis/Problems (1) Acute respiratory failure due to COVID-19 Status: Acute (2) Bacterial pneumonia Status: Acute (3) Debility Status: Acute MELVA CANSECO MD Dec 31, 2020 09:41
[2020-12-31 11:24] VITALS: BP 147/76
[2020-12-31] MEDS: REMDESIVIR INJ 100 MG in NS (IVPB) 230 ML IV SCH (13:46)
[2020-12-31 15:42] VITALS: BP 126/90
--- NOTE | 2020-12-31 15:51 | Physical Therapy Daily Note ---
PT Daily Note-Current Subjective Patient lying supine in bed upon PT arrival, agreeable to treatment. Patient reports 0/10 pain currently. Transfers SCALE: Activities may be completed with or without assistive devices. 6-Imeibmkbmi-sgaitvz completes the activity by him/herself with no assistance from a helper. 5-Set-up or Clean-up Assistance-helper sets up or cleans up; patient completes activity. [place] assists only prior to or following the activity. 4-Supervision or Touching Assistance-helper provides verbal cues and/or touching/steadying and/or contact guard assistance as patient completes activity. Assistance may be provided throughout the activity or intermittently. 3-Partial/Moderate Assistance-helper does LESS THAN HALF the effort. [place] lifts, holds or supports trunk or limbs, but provides less than half the effort. 2-Substantial/Maximal Assistance-helper does MORE THAN HALF the effort. [place] lifts or holds trunk or limbs and provides more than half the effort. 0-Ljzfzotia-ciwwnl does ALL the effort. Patient does none of the effort to complete the activity. Or, the assistance of 2 or more helpers is required for the patient to complete the activity. If activity was not attempted, code reason: 7-Patient Refused. 9-Not Applicable-not attempted and the patient did not perform the activity bef ore the current illness, exacerbation or injury. 10-Not Attempted due to Environmental Limitations-(lack of equipment, weather r estraints, etc.). 88-Not Attempted due to Medical Conditions or Safety Concerns. Gait Training Does the Patient Walk?: Yes Distance: 120 Walk 10 feet (QC): 5 Walk 50 ft with 2 Turns(QC): 5 Walk 150 ft (QC): 5 Gait Persons Needed: 1 Gait Assistive Device: None Treatments Gait training Assessment Current Status: Fair Progress Patient performs all observed bed mobility and transfers with SBA, however impulsive at times. Patient ambulates 120 feet with no Assistive device, with SBA and verbal cues for safety, progression, posture and to avoid obstacles. PT Records Management Associate Goals Care Home Goals PT Records Management Associate Goals Time Frame: Jan 06, 2021 Roll Left & Right (QC): 6 Sit to Lying (QC): 6 Lying-Sitting on Side/Bed(QC): 6 Sit to Stand (QC): 6 Chair/Mir-hp-Yvskk Xfer(QC): 6 Walk 10 feet (QC): 6 Walk 50ft with 2 Turns (QC): 6 Walk 150 ft (QC): 6 PT Plan Treatment/Plan Treatment Plan: Continue Plan of Care Treatment Plan: Education, Functional Activity Enrique, Functional Strength, Gait, Safety, Therapeutic Exercise, Transfers Treatment Duration: Jan 06, 2021 Frequency: 6 times per week Estimated Hrs Per Day: .25 hour per day Patient and/or Family Agrees t: Yes Safety Risks/Education Patient Education: Gait Training, Transfer Techniques Teaching Recipient: Patient Teaching Methods: Demonstration, Discussion Response to Teaching: Verbalize Understanding Time/GCodes Time In: 1425 Time Out: 1440 Total Billed Treatment Time: 15 Total Billed Treatment Visit, SOREN Lewis PT Dec 31, 2020 15:51
[2020-12-31] MEDS: ENOXAPARIN 40 MG/0.4 ML (LOVENOX) SYR SC SCH (17:54)
[2020-12-31 19:39] VITALS: BP 140/88
[2020-12-31 23:58] VITALS: BP 116/88
[2021-01-01 03:59] LABS: BASOPHILS % (AUTO) 0 % (0-10); EOSINOPHILS % (AUTO) 0 % (0-10); HEMATOCRIT 42 % (40-54); HEMOGLOBIN 14.3 g/dL (13.3-17.7); LYMPHOCYTES # (AUTO) 9.1 10^3/uL (1.0-4.0); LYMPHOCYTES % (AUTO) 58 % (12-44); MEAN CORPUSCULAR HEMOGLOBIN 31 pg (25-34); MEAN CORPUSCULAR HGB CONC 34 g/dL (32-36); MEAN CORPUSCULAR VOLUME 90 fL (80-99); MEAN PLATELET VOLUME 12.2 fL (9.0-12.2); MONOCYTES # (AUTO) 0.6 10^3/uL (0.0-1.0); MONOCYTES % (AUTO) 4 % (0-12); NEUTROPHILS # (AUTO) 5.8 10^3/uL (1.8-7.8); NEUTROPHILS % (AUTO) 37 % (42-75); PLATELET COUNT 155 10^3/uL (130-400); WHITE BLOOD COUNT 15.6 10^3/uL (4.3-11.0)
[2021-01-01 04:06] VITALS: BP 162/85
[2021-01-01 04:13] LABS: CALCIUM 7.8 MG/DL (8.5-10.1)
[2021-01-01 04:17] LABS: PHOSPHORUS 3.1 MG/DL (2.3-4.7)
[2021-01-01 04:18] LABS: CREATININE SERUM 0.84 MG/DL (0.60-1.30)
[2021-01-01 04:20] LABS: MAGNESIUM 2.2 MG/DL (1.6-2.4)
[2021-01-01 07:52] VITALS: BP 138/78
[2021-01-01] MEDS: ASPIRIN 81 MG CHEW (CHILDREN'S ASA) PO SCH (09:09)
[2021-01-01] MEDS: MELOXICAM 7.5 MG (MOBIC) TABLET PO SCH (09:09)
[2021-01-01] MEDS: cefTRIAXone 2,000 MG in WATER (STERILE) FOR INJECTION 20 ML IV SCH (09:09)
[2021-01-01] MEDS: amLODIPine 10 MG (NORVASC) TAB PO SCH (09:10)
[2021-01-01] MEDS: PANTOPRAZOLE 40 MG (PROTONIX) TAB PO SCH (09:10)
[2021-01-01] MEDS: AZITHROMYCIN 250 MG TAB (ZITHROMAX) PO SCH (09:10)
[2021-01-01 11:20] VITALS: BP 117/72
--- NOTE | 2021-01-01 11:54 | Progress Note - Hospitalist ---
Subjective HPI/CC On Admission Date Seen by Provider: Jan 01, 2021 Time Seen by Provider: 10:25 Arturo Smith is an 85-year-old male with past medical history of hypertension, hyperlipidemia, GERD, who presented with shortness of breath. He was recently diagnosed with Covid and received the monoclonal antibody infusion on the day of his arrival. He has been having fevers. He has been having a cough. Upon my examination, he is feeling very improved. He is not feeling short of breath. He still feels a bit weak. He denies nausea and vomiting. He says he has a good appetite. He is about to eat his breakfast. Subjective/Events-last exam He is feeling much better today. He is breathing better. He still has a cough. He has been able to eat and drink. He has been up and moving around. Focused Exam Lactate Level 12/29/20 15:05: Lactic Acid Level 2.19*H 12/29/20 18:41: Lactic Acid Level 1.21 Objective Exam Vital Signs Vital Signs Date Time Temp Pulse Resp B/P (MAP) Pulse Ox O2 Delivery O2 Flow Rate FiO2 01/01/21 09:00 Nasal Cannula 2.00 01/01/21 07:52 35.2 72 18 138/78 (98) 93 Capillary Refill : Less Than 3 Seconds General Appearance: No Apparent Distress, Obese Respiratory: Lungs Clear, Normal Breath Sounds, No Respiratory Distress Cardiovascular: Regular Rate, Rhythm, No Edema, No Murmur Gastrointestinal: Normal Bowel Sounds, Non Tender, Soft Extremity: Normal Inspection, Non Tender, No Pedal Edema Neurologic/Psychiatric: Alert, Oriented x3, No Motor/Sensory Deficits, Normal Mood/Affect Skin: Normal Color, Warm/Dry Results/Procedures Lab Laboratory Tests 01/01/21 03:47 Patient resulted labs reviewed. Imaging: Reviewed Imaging Report Assessment/Plan Assessment and Plan Assess & Plan/Chief Complaint Acute respiratory failure due to COVID-19 Bacterial pneumonia COVID+ prior to arrival s/p monoclonal antibody infusion 12/29 Continue Decadron Continue Remdesivir Initially requiring BiPAP, now on nasal cannula, stable Cough syrup as needed MAT protocol Procalcitonin trended up Continue Rocephin and Azithromycin Home oxygen study tomorrow morning May benefit from home health on discharge Debility PT/OT HTN HLD GERD Continue home meds DVT prophylaxis: Lovenox Diagnosis/Problems Diagnosis/Problems (1) Acute respiratory failure due to COVID-19 Status: Acute (2) Bacterial pneumonia Status: Acute (3) Debility Status: Acute MELVA CANSECO MD Jan 01, 2021 11:54
[2021-01-01] MEDS: REMDESIVIR INJ 100 MG in NS (IVPB) 230 ML IV SCH (15:02)
[2021-01-01 16:11] VITALS: BP 146/82
[2021-01-01] MEDS: ENOXAPARIN 40 MG/0.4 ML (LOVENOX) SYR SC SCH (18:13)
[2021-01-01 20:45] VITALS: BP 132/78
[2021-01-01 23:27] VITALS: BP 136/79
[2021-01-02 03:40] VITALS: BP 126/77
[2021-01-02 06:57] LABS: BASOPHILS % (AUTO) 0 % (0-10); EOSINOPHILS % (AUTO) 0 % (0-10); HEMATOCRIT 42 % (40-54); HEMOGLOBIN 14.1 g/dL (13.3-17.7); LYMPHOCYTES # (AUTO) 10.1 10^3/uL (1.0-4.0); LYMPHOCYTES % (AUTO) 64 % (12-44); MEAN CORPUSCULAR HEMOGLOBIN 30 pg (25-34); MEAN CORPUSCULAR HGB CONC 34 g/dL (32-36); MEAN CORPUSCULAR VOLUME 91 fL (80-99); MONOCYTES # (AUTO) 0.7 10^3/uL (0.0-1.0); MONOCYTES % (AUTO) 5 % (0-12); NEUTROPHILS # (AUTO) 4.9 10^3/uL (1.8-7.8); NEUTROPHILS % (AUTO) 31 % (42-75); PLATELET COUNT 161 10^3/uL (130-400); WHITE BLOOD COUNT 15.8 10^3/uL (4.3-11.0)
[2021-01-02 07:09] LABS: POTASSIUM 4.2 MMOL/L (3.6-5.0)
[2021-01-02 07:10] LABS: CALCIUM 7.8 MG/DL (8.5-10.1)
[2021-01-02 07:15] VITALS: BP 125/85
[2021-01-02 07:15] LABS: CREATININE SERUM 0.86 MG/DL (0.60-1.30)
[2021-01-02 07:17] LABS: MAGNESIUM 2.2 MG/DL (1.6-2.4)
[2021-01-02] MEDS: AZITHROMYCIN 250 MG TAB (ZITHROMAX) PO SCH (08:30)
[2021-01-02] MEDS: ASPIRIN 81 MG CHEW (CHILDREN'S ASA) PO SCH (08:30)
[2021-01-02] MEDS: amLODIPine 10 MG (NORVASC) TAB PO SCH (08:30)
[2021-01-02] MEDS: MELOXICAM 7.5 MG (MOBIC) TABLET PO SCH (08:31)
[2021-01-02] MEDS: PANTOPRAZOLE 40 MG (PROTONIX) TAB PO SCH (08:31)
[2021-01-02] MEDS: cefTRIAXone 2,000 MG in WATER (STERILE) FOR INJECTION 20 ML IV SCH (08:46)
[2021-01-02] MEDS ORDERED: ALBU18HF2 IH (10:59)
--- NOTE | 2021-01-02 11:01 | Discharge Inst-Simple/Standard ---
Discharge Inst-Standard Discharge Medications New, Converted or Re-Newed RX: Transmitted to Pharmacy Patient Instructions/Follow Up Plan of Care/Instructions/FU: Please continue to takey our medications as written. Please follow up with your primary care doctor next week. Activity as Tolerated: Yes Discharge Diet: No Restrictions Return to The Hospital For: fever, chills, shortness of breath, weakness, low oxygen saturations, confusion, if you feel you are getting worse. MEI NGUYEN MD Jan 02, 2021 11:01
--- NOTE | 2021-01-02 11:04 | Discharge Summary ---
Diagnosis/Chief Complaint Date of Admission Dec 29, 2020 at 16:00 Date of Discharge Discharge Date: Jan 02, 2021 Admission Diagnosis Acute respiratory failure due to COVID-19 Primary Care Shahana Marie MD Discharge Diagnosis (1) Acute respiratory failure due to COVID-19 Status: Acute (2) Bacterial pneumonia Status: Acute (3) Debility Status: Acute Discharge Summary Discharge Physical Exam Allergies: Coded Allergies: No Known Drug Allergies (Unverified , 12/29/20) Vitals & I&Os Vital Signs Date Time Temp Pulse Resp B/P (MAP) Pulse Ox O2 Delivery O2 Flow Rate FiO2 01/02/21 09:36 Nasal Cannula 1.00 01/02/21 07:15 36.4 63 20 125/85 (98) 96 Hospital Course patient was admitted with acute hypoxic respiratory failure due to COVID-19. He was treated with Decadron, convalescent plasma, and Remdesivir. He did well and was able to be titrated down on oxygen to 1lpm. He was discharged home in stable and improved condition to follow-up with his primary care provider. I called and updated Dr Marie of this hospitalization. Labs (last 24 hrs) Laboratory Tests 01/02/21 06:35: White Blood Count 15.8H, Red Blood Count 4.64, Hemoglobin 14.1, Hematocrit 42, Mean Corpuscular Volume 91, Mean Corpuscular Hemoglobin 30, Mean Corpuscular Hemoglobin Concent 34, Red Cell Distribution Width 13.8, Platelet Count 161, Mean Platelet Volume 12.0, Immature Granulocyte % (Auto) 1, Neutrophils (%) (Auto) 31L, Lymphocytes (%) (Auto) 64H, Monocytes (%) (Auto) 5, Eosinophils (%) (Auto) 0, Basophils (%) (Auto) 0, Neutrophils # (Auto) 4.9, Lymphocytes # (Auto) 10.1H, Monocytes # (Auto) 0.7, Eosinophils # (Auto) 0.0, Basophils # (Auto) 0.0, Immature Granulocyte # (Auto) 0.1, Sodium Level 141, Potassium Level 4.2, Chloride Level 104, Carbon Dioxide Level 24, Anion Gap 13, Blood Urea Nitrogen 22H, Creatinine 0.86, Estimat Glomerular Filtration Rate 85, BUN/Creatinine Ratio 26, Glucose Level 118H, Calcium Level 7.8L, Phosphorus Level 3.0, Magnesium Level 2.2 Microbiology 12/29/20 Blood Culture - Preliminary, Resulted No growth 12/29/20 MRSA Screen - Final, Complete MRSA not isolated Patient resulted labs reviewed. Pending Labs Laboratory Tests 01/02/21 06:35: White Blood Count 15.8, Red Blood Count 4.64, Hemoglobin 14.1, Hematocrit 42, Mean Corpuscular Volume 91, Mean Corpuscular Hemoglobin 30, Mean Corpuscular Hemoglobin Concent 34, Red Cell Distribution Width 13.8, Platelet Count 161, Mean Platelet Volume 12.0, Immature Granulocyte % (Auto) 1, Neutrophils (%) (Auto) 31, Lymphocytes (%) (Auto) 64, Monocytes (%) (Auto) 5, Eosinophils (%) (Auto) 0, Basophils (%) (Auto) 0, Neutrophils # (Auto) 4.9, Lymphocytes # (Auto) 10.1, Monocytes # (Auto) 0.7, Eosinophils # (Auto) 0.0, Basophils # (Auto) 0.0, Immature Granulocyte # (Auto) 0.1, Sodium Level 141, Potassium Level 4.2, Chloride Level 104, Carbon Dioxide Level 24, Anion Gap 13, Blood Urea Nitrogen 22, Creatinine 0.86, Estimat Glomerular Filtration Rate 85, BUN/Creatinine Ratio 26, Glucose Level 118, Calcium Level 7.8, Phosphorus Level 3.0, Magnesium Level 2.2 Imaging: Reviewed Imaging Report Discussion & Recommendations Discharge Planning: >30 minutes discharge planning Discharge Home Medications: Active Scripts Active Ventolin Hfa (Albuterol Sulfate) 18 Gm Hfa.aer.ad 0 Gm IH RTQ4HR PRN Reported Meloxicam 15 Mg Tablet 15 Mg PO DAILY Atorvastatin Calcium 20 Mg Tablet 20 Mg PO HS Metoprolol Succinate 25 Mg Tab.er.24h 25 Mg PO DAILY Azithromycin 500 Mg Tablet 500 Mg PO DAILY FILLED 12-26-2020 #5/5 DAY SUPPLY Prednisone 50 Mg Tab 50 Mg PO DAILY FILLED 12-26-2020 #5/ DAY SUPPLY Amlodipine Besylate 10 Mg Tablet 10 Mg PO DAILY Aspirin 81 Mg Tab.chew 81 Mg PO DAILY Instructions to patient/family Please see electronic discharge instructions given to patient. MEI NGUYEN MD Jan 02, 2021 11:04
[2021-01-02 11:12] VITALS: BP 128/76
[2021-01-02 13:36] VITALS: BP 128/76
== END 2021-01-02 13:36 | disposition home or self-care (01) | DRG 177 ==
LOC: EDUNIT# 14:38 → ER 14:39 → ICU 16:00 → 4TH 12-30 14:39
PROVIDERS: ADMIT Internal Medicine; ATTEND Internal Medicine
PROC: XW033E5 Introduction of Remdesivir Anti-infective into Peripheral Vein, Percutaneous Approach, New Technology Group 5 (ICD-10-PCS; principal; 2020-12-30)
DX: U07.1 COVID-19 (principal); J96.01 Acute respiratory failure with hypoxia; J15.9 Unspecified bacterial pneumonia; I25.10 Atherosclerotic heart disease of native coronary artery without angina pectoris; I10 Essential (primary) hypertension; E78.5 Hyperlipidemia, unspecified; E78.00 Pure hypercholesterolemia, unspecified; K21.9 Gastro-esophageal reflux disease without esophagitis; Z73.0 Burn-out; Z79.82 Long term (current) use of aspirin
CPT/HCPCS: 36415; 71045; 80048; 80053; 82805; 83605; 83735; 84100; 84145; 84484; 85007; 85025; 85027; 85379; 85610; 85730; 86141; 87040; 87081; 93005; 94760; 94761; 99291

== ENCOUNTER → 2021-01-19 | Outpatient (CLI) | payer MEDICARE ==
[~2021-01-19] MED LIST changes: +ALBU18HF2 IH; +ATOR20TA66 PO; +AZIT500T9 PO; +MELO15TA39 PO; +MTP25TSR PO; +PRD50T PO
[2021-01-19 09:25] LABS: BASOPHILS # (AUTO) 0.1 10^3/uL (0.0-0.1); BASOPHILS % (AUTO) 0 % (0-10); EOSINOPHILS # (AUTO) 0.8 10^3/uL (0.0-0.3); EOSINOPHILS % (AUTO) 5 % (0-10); HEMATOCRIT 43 % (40-54); HEMOGLOBIN 14.1 g/dL (13.3-17.7); LYMPHOCYTES # (AUTO) 9.6 10^3/uL (1.0-4.0); LYMPHOCYTES % (AUTO) 61 % (12-44); MEAN CORPUSCULAR HEMOGLOBIN 31 pg (25-34); MEAN CORPUSCULAR HGB CONC 33 g/dL (32-36); MEAN CORPUSCULAR VOLUME 94 fL (80-99); MEAN PLATELET VOLUME 11.1 fL (9.0-12.2); MONOCYTES # (AUTO) 0.9 10^3/uL (0.0-1.0); MONOCYTES % (AUTO) 6 % (0-12); NEUTROPHILS # (AUTO) 4.4 10^3/uL (1.8-7.8); NEUTROPHILS % (AUTO) 28 % (42-75); PLATELET COUNT 172 10^3/uL (130-400); WHITE BLOOD COUNT 15.7 10^3/uL (4.3-11.0)
[2021-01-19 09:47] LABS: ALBUMIN 3.4 GM/DL (3.2-4.5); BILIRUBIN,TOTAL 0.7 MG/DL (0.1-1.0); CREATININE SERUM 1.21 MG/DL (0.60-1.30); POTASSIUM 3.8 MMOL/L (3.6-5.0); TOTAL PROTEIN 5.9 GM/DL (6.4-8.2)
== END ==
LOC: ONC 09:15
PROVIDERS: ATTEND Internal Medicine Hematology & Oncology
DX: C91.10 Chronic lymphocytic leukemia of B-cell type not having achieved remission (principal); U07.1 COVID-19
CPT/HCPCS: 80053; 83615; 85025; G0463; 99213

== ENCOUNTER → 2021-04-20 | Outpatient (CLI) | payer MEDICARE ==
[2021-04-20 13:09] LABS: BASOPHILS % (AUTO) 0 % (0-10); EOSINOPHILS # (AUTO) 0.3 10^3/uL (0.0-0.3); EOSINOPHILS % (AUTO) 2 % (0-10); HEMATOCRIT 42 % (40-54); HEMOGLOBIN 14.2 g/dL (13.3-17.7); LYMPHOCYTES # (AUTO) 9.2 10^3/uL (1.0-4.0); LYMPHOCYTES % (AUTO) 60 % (12-44); MEAN CORPUSCULAR HEMOGLOBIN 31 pg (25-34); MEAN CORPUSCULAR HGB CONC 34 g/dL (32-36); MEAN CORPUSCULAR VOLUME 92 fL (80-99); MEAN PLATELET VOLUME 11.9 fL (9.0-12.2); MONOCYTES # (AUTO) 0.7 10^3/uL (0.0-1.0); MONOCYTES % (AUTO) 5 % (0-12); NEUTROPHILS # (AUTO) 5.1 10^3/uL (1.8-7.8); NEUTROPHILS % (AUTO) 34 % (42-75); PLATELET COUNT 173 10^3/uL (130-400); WHITE BLOOD COUNT 15.4 10^3/uL (4.3-11.0)
[2021-04-20 13:32] LABS: ALBUMIN 3.5 GM/DL (3.2-4.5); BILIRUBIN,TOTAL 0.7 MG/DL (0.1-1.0); CALCIUM 8.7 MG/DL (8.5-10.1); CREATININE SERUM 1.01 MG/DL (0.60-1.30); TOTAL PROTEIN 5.7 GM/DL (6.4-8.2)
== END ==
LOC: ONC 12:54
PROVIDERS: ATTEND Internal Medicine Hematology & Oncology
DX: C91.10 Chronic lymphocytic leukemia of B-cell type not having achieved remission (principal); Z86.16 Personal history of COVID-19
CPT/HCPCS: 80053; 83615; 85025; G0463; 99213